=== PATIENT | male | born 1945 | race Caucasian/White ===

== ENCOUNTER 2018-09-13 08:22 | Inpatient (IN) | payer MEDICARE, BC ==
[~2018-09-13 08:22] MED LIST: Buffered Lidocaine 1% SYRIN* 1 ML/SYRINGE INTRADERM ONE; Dexamethasone TAB* 4 MG PO ONE; DiMENhydriNATE IV* 50 MG/ML VIAL IV PUSH PRN; Famotidine IV* 10 MG/ML 2 ML (20 mg) IV ONE; Lactated Ringers 1000 ML Bag* 1,000 ML IV SCH; Morphine 4 MG/ML VIAL (1 ml) 4 MG/ML VIAL IV PRN; Naloxone* 0.4 MG/ML 1 ML VIAL IV PRN; Ondansetron TAB* 4 MG PO ONE; PROCHLORPERAZINE INJ 5 MG/ML 2 ML VIAL IV PRN; fentaNYL* 50 MCG/ML 2 ML VIAL (100 MCG VIAL) IV PRN; oxyCODONE/Acetamin 5/325 MG* TAB PO PRN
[2018-09-13] MEDS ORDERED: Ondansetron ODT TAB* 4 MG ONE (09:39)
[2018-09-13] MEDS ORDERED: ceFAZolin 1 GM ADVAN(*) 1 GM ADDV.VIAL IVPB ONE (09:39)
[2018-09-13] MEDS ORDERED: Dexamethasone TAB* 4 MG ONE (09:39)
[2018-09-13] MEDS ORDERED: ceFAZolin 2 GM in NS PREMIX(*) 2 GM/100 ML BAG IVPB ONE (09:40)
[2018-09-13] MEDS ORDERED: Famotidine IV* 10 MG/ML 2 ML (20 mg) ONE (09:40)
[2018-09-13] MEDS ORDERED: KETAMINE HCL* 50 MG/ML 10 ML VIAL ONE (09:53)
[2018-09-13] MEDS ORDERED: Midazolam* 1 MG/ML 5 ML VIAL (5 MG) ONE (09:53)
[2018-09-13] MEDS ORDERED: fentaNYL* 50 MCG/ML 2 ML VIAL (100 MCG VIAL) ONE (09:53)
[2018-09-13] MEDS ORDERED: Bupivacaine 0.5%* 50 ML VIAL ONE (10:25)
[2018-09-13] MEDS ORDERED: EPHEDrine (Pressors)* 50 MG/ML VIAL ONE (12:07)
[2018-09-13] MEDS ORDERED: Phenylephrine 10 MG/ML VIAL* 1 ML VIAL ONE (12:07)
[2018-09-13] MEDS ORDERED: Lidocaine 2% PF * 5 ML VIAL ONE (12:07)
[2018-09-13] MEDS ORDERED: Propofol* 500 MG/50 ML BTL ONE (12:07)
[2018-09-13] MEDS ORDERED: Propofol* 10 MG/ML 20 ML BTL ONE (12:10)
[2018-09-13] MEDS ORDERED: diPHENhydraMINE IV* 50 MG/ML 1 ml VIAL (BENADRYL) IV PRN (12:23)
[2018-09-13] MEDS ORDERED: Ondansetron INJ* 2 MG/ML VIAL IV PRN (12:23)
[2018-09-13] MEDS ORDERED: Morphine 4 MG/ML VIAL (1 ml) 4 MG/ML VIAL IV PRN (12:23)
[2018-09-13] MEDS ORDERED: Magnesium Hydroxide LIQ* 30 ML UDC PO PRN (12:23)
[2018-09-13] MEDS ORDERED: oxyCODONE TAB* 5 MG TAB PO PRN ×2 (12:23→12:31)
[2018-09-13] MEDS ORDERED: Temazepam CAP* 15 MG PO PRN (12:23)
[2018-09-13] MEDS ORDERED: Lactated Ringers 1000 ML Bag* 1,000 ML IV SCH (13:00)
[2018-09-13] MEDS ORDERED: oxyCODONE/Acetamin 5/325 MG* TAB ONE (13:33)
[2018-09-13] MEDS ORDERED: Vancomycin per Pharmacy* NOTE FOLLOW UP PRN (15:00)
--- NOTE | 2018-09-13 15:26 | OP ---
Operative Report - Blank - Operative Report Date of Operation: 09/13/18 Note: PATIENT: Deonte Gurrola DATE OF : 1945 DATE OF SURGERY: 09/13/2018 SURGEON: Kapil Rueda MD [employer] SK[employer]: FIDELINA Dumont, whos assistance was necessary for positioning, retraction, help with instrumentation, and closure. ANESTHESIOLOGIST: Dr. Schroeder PREOPERATIVE DIAGNOSIS: Right forefoot deep infection with abscess and osteomyelitis. Right gastrocnemius contracture. POSTOPERATIVE DIAGNOSIS: Right forefoot deep infection with abscess and osteomyelitis. Right gastrocnemius contracture. OPERATION: 1. Right gastrocnemius recession (Fabrizio procedure) 2. Right 2nd toe amputation at the level of the MTP joint 3. Right 2nd metatarsal head excision 4. Right foot irrigation and debridement in multiple deep spaces ANESTHESIA: MAC IMPLANTS: none TOURNIQUET TIME: Less than 1 hour with a well-padded thigh tourniquet at 250mmHg. SPECIMENS: Toe to pathology. Culture swabs x2 to micro. ESTIMATED BLOOD LOSS: minimal COMPLICATIONS: none STATUS: Stable from the operating room to the recovery room. INDICATIONS FOR PROCEDURE: Deonte has had persistent and recurrent forefoot infections. Both operative and non operative treatment alternatives were reviewed. Further, the nature and risks of surgery were reviewed in careful detail. Our discussions regarding the risks of surgery included, but were not limited to, wound infection, wound problems, nerve injury, neuroma, RSD, persistent symptoms, blood clot, persistent or worsening infection, failure of the surgery, need for further amputation, and even the remote chance of catastrophic complication, including loss of limb. DESCRIPTION OF PROCEDURE: The patient was seen in the preoperative holding unit and informed written consent was obtained. The appropriate extremity was marked. The patient was then brought to the operating room and carefully positioned on the operating room table. Anesthesia was induced. All bony prominences were padded with great care. A chlorhexidine based pre-scrub was performed followed by a chloraprep prep and drape in standard sterile fashion. A surgical safety pause was then conducted in which we confirmed the appropriate patient, extremity, planned procedure, availability of equipment, indication and administration of antibiotics, and DVT prophylaxis in the form of a compression boot on the non- surgical extremity. I began with an esmarch exsanguination and inflated the tourniquet. Care was taken not to compress the infected forefoot. I then made an approximately 3-cm incision at the posteromedial calf. I carried the dissection through the soft tissue and divided the crural fascia longitudinally. I then exposed the fascia of the gastrocnemius muscle. Great care was taken to protect the sural nerve throughout this procedure. I cleared all adhesions from the posterior aspect of the gastrocnemius fascia and then transected this in its entirety from medially to laterally. I then identified the plantaris tendon, which was also tight medially. This was transected. These procedures had the effect of improving the ankle dorsiflexion to approximately 10 degrees. I then again confirmed that the sural nerve was in continuity. We irrigated copiously. We then used #3-0 Monocryl for the subdermal layer and patricia for the skin. I then made an incision to remove the distal aspect of the toe. I maintained as much healthy soft-tissue length as was possible. The phalanges were dissected out and the toe was amputated at the level of the MTP joint. The toe was then sent to pathology. I then utilized his prior longitudinal dorsal incision over the second metatarsal to expose the forefoot. Dissection was taken down to the layer of the second metatarsal. There was mary ann pus in the forefoot. A thorough debridement of nonviable and infected tissue was performed at the layer of the skin, subcutaneous tissue, fascial tissue, periosteum, and intermetatarsal spaces between the first and second and second and third metatarsals. This tissue was debrided sharply with a 15 blade scalpel. After a thorough debridement, 5 L of sterile normal saline was used to irrigate out the wound, which measured 7 cm in length and 2 cm in width and 2 cm in depth. The remaining tissue appeared healthy and viable. The distal aspect of the second metatarsal was soft and appeared osteomyelitic. Therefore, I decided to move forward with an excision of the second metatarsal head. A small oscillating saw blade was then used to remove approximately the distal third of the second metatarsal. I then performed one last thorough irrigation of the wound. We closed in a layered fashion with 0 PDS, 3-0 monocryl and then 3-0 nylon and then placed a splint with the ankle in a neutral position. The patient was then awakened from anesthesia and transferred to the recovery room in stable condition. There were no complications. All needle and sponge counts were correct at the end of the case. ATTESTATION: I attest I was present and scrubbed and performed the critical portions of the procedure myself. POSTOPERATIVE PLAN: The patient will be NWB. Antibiotic treatment will be guided by the infectious disease service.
[2018-09-13] MEDS ORDERED: Vancomycin(*) 1,500 MG in NS 0.9% 250 ML* 250 ML IVPB ONE (16:30)
[2018-09-13] MEDS ORDERED: ZOSYN 3.375 GM x ONE DOSE over 30 miuntes IVPB ×2 (16:30)
[2018-09-13] MEDS: Acetaminophen TAB* 325 MG PO SCH (17:06)
[2018-09-13] MEDS: Fludrocortisone Acetate TAB* 0.1 MG PO SCH (17:15)
[2018-09-13] MEDS: Hydrocortisone INJ* 100 MG VIAL IV SCH (17:15)
--- NOTE | 2018-09-13 17:17 | CONS ---
CC: Dr. Emery in [place], [place] * CONSULTATION REPORT: DATE OF CONSULT: 09/13/18 PRIMARY CARE PROVIDER: Dr. Emery in [place], [place]. REQUESTING PHYSICIAN IN CONSULT: Dr. Rueda. ATTENDING PHYSICIAN: Dr. Anna Marie Lopez (dictated by Franco Curry, JONAS). REASON FOR CONSULT: Co-medical management of [place]'s disease and hypertension. HISTORY OF PRESENT ILLNESS/HOSPITAL COURSE: I will refer you to Dr. Rueda's H and P dictated on 09/10/18 for complete details, but in short, Mr. Gurrola is a 72- year-old male with a past medical history significant for hypertension, Matt's disease and peripheral neuropathy, who presented to [facility] today for a right foot second toe amputation, second metatarsal head resection and irrigation and debridement of soft tissue abscess. Given the patient's medical history, we were asked to consult while this patient is hospitalized. PAST MEDICAL HISTORY: 1. Hypertension. 2. Matt's disease. 3. Peripheral neuropathy. PAST SURGICAL HISTORY: 1. Right foot surgery x2. 2. Kidney stone surgery. HOME MEDICATIONS: 1. Hydrocortisone 20 mg by mouth in the morning and 10 mg by mouth in the evening (morning dose taken today). 2. Fludrocortisone acetate 0.1 mg 1 tab in the morning every other day, last dose yesterday. 3. Hydrochlorothiazide 12.5 mg p.o. daily (last dose today). 4. Lisinopril 20 mg 1 tab by mouth daily (last dose today). 5. Bactrim DS 800/160 mg 1 by mouth twice a day (last dose today). ALLERGIES: No known drug allergies. FAMILY HISTORY: The patient reports mother of cancer. The patient reports father in a MVA, but had history of diabetes, multiple MIs and hypertension. 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 The patient is a former smoker, he quit in 1969. The patient denies alcohol use. The patient denies drug use. The patient lives with his . Prior to today, the patient was independent in his ADLs. The patient lives in a 2-mande[address] building. REVIEW OF SYSTEMS: Constitutional: No fevers, no weight loss, no anorexia. Cardiac: No chest pain, no palpitations, no shortness of breath. Respiratory: No cough, no hemoptysis, no shortness of breath. Abdomen: No nausea or vomiting, no diarrhea, no abdominal pain, no constipation. : No dysuria, no hematuria. Musculoskeletal: The patient currently denies pain. Skin: The patient denies rashes or lesions. Psych: The patient denies anxiety or depression. PHYSICAL EXAM: General: Mr. Gurrola is sitting on the stretcher in the PACU. He appears in no acute distress. He appears stated age. Vital Signs: Temp 98.6, HR 85, O2 saturation 93% on room air, RR 17, BP 116/64. HEENT: EOMs intact. PERRLA. Oral mucosa is moist without lesions. Posterior pharynx is clear. Neck: Supple. No lymphadenopathy. Respiratory: Lungs are clear to auscultation. Good aeration. No wheezes, rubs, or rhonchi. Cardiac: S1, S2 present. No murmurs, rubs, or gallops. Regular rate and rhythm. Abdomen: Abdomen is soft, nontender. Bowel sounds x4. Extremities: Right lower extremity has soft cast and Torito wrap from foot to directly below knee. Left lower extremity is free from edema. Pedal pulses are present on the left. Popiteal pulse present on right. Exposed toes on right are pink and blanchable. Sensation intact to left. Sensation diminished to right currently. Neuro: The patient is awake, alert, and oriented x4. Motor strength is 5/5 in upper and lower extremities. Skin: Grossly intact. Dressing to right lower extremity is clean, dry, and intact. DIAGNOSTIC STUDIES/LAB DATA: CBC obtained 08/29/18, WBC 15.5, hemoglobin 14.8, hematocrit 43, platelets 398. CRP 142.92. ASSESSMENT AND PLAN: Mr. Gurrola is a 72-year-old male with a past medical history significant for hypertension, Matt's disease, peripheral neuropathy, who presented to [facility] today for a right foot surgery. The patient will be admitted to short-stay surgical. 1. Right foot second toe amputation, second metatarsal head resection, irrigation and debridement of soft tissue abscess. The management of this will be deferred to the ortho team. 2. Osteomyelitis: There was concern for osteomyelitis, therefore, Dr. Hinton has been contacted to consult. The patient has also been started on Zosyn and vancomycin. We will continue these until the patient is seen by Dr. Hinton. The patient to be monitored routinely for signs and symptoms of worsening infection. 2. Hypertension: The patient has a history of hypertension and is on lisinopril and hydrochlorothiazide. In the PACU, the patient was noted to be hypotensive with the lowest systolic being 89. The patient had epi infusing during my assessment. I suspect this low blood pressure is due to surgery, but also patient's Matt's disease. I have ordered hydrocortisone 50 mg IV now and t.i.d. while the patient is admitted. I believe this will help with his blood pressure. I have also held the patient's blood pressure medications of lisinopril and HCTZ. The patient to be monitored routinely. 3. [place]'s disease: As mentioned above, the patient has been ordered hydrocortisone 50 mg IV q.8 hours given his recent surgery and his history of [place]'s disease. I have also ordered the patient to receive his fludrocortisone p.o. now. The patient should receive the hydrocortisone 50 mg IV q.8 hours while admitted and then we can titrate back to the patient's normal dosing at home. 4. The patient has a history of peripheral neuropathy: The patient can follow up with his primary care regarding this. 5. FEN: The patient has been ordered diet by the ortho team. 6. Code status: The patient is a full code. 7. DVT prophylaxis: DVT prophylaxis has been ordered by the ortho team in the form of Lovenox. TIME SPENT: Approximately 45 minutes was spent on this consultation, greater than half the time was spent with the patient and family, obtaining my history and performing physical exam and reviewing my plan of care. This case has been reviewed with my attending, Dr. Lopez, who is in agreement with my plan of care. Thank you very much for allowing us to participate in the care of this patient. We will follow along with you. Reviewed by FRANCO CURRY NP 09/21/18 @ [id number]/CPS #: [id number]
[2018-09-13 17:49] LABS: EGFR African American 38.5 (>60); EGFR Non-African American 31.8 (>60)
[2018-09-13] MEDS ORDERED: HYDROCORTISONE 10 MG PO SCH (18:00)
[2018-09-13] MEDS: Piperacillin/Tazobac ADVAN(*) 3.375 GM in NS 0.9% 100 ML* 100 ML IVPB SCH (20:38)
[2018-09-14] MEDS: Acetaminophen TAB* 325 MG PO SCH ×3 (00:50→16:40)
[2018-09-14] MEDS: Hydrocortisone INJ* 100 MG VIAL IV SCH (00:50)
[2018-09-14] MEDS: Piperacillin/Tazobac ADVAN(*) 3.375 GM in NS 0.9% 100 ML* 100 ML IVPB SCH (04:48)
[2018-09-14 05:27] LABS: Hematocrit 43 % (36-46); Hemoglobin 14.7 g/dL (14.0-18.0)
[2018-09-14 05:56] LABS: Calcium 9.3 mg/dL (8.6-10.3)
[2018-09-14 06:01] LABS: BUN/Creatinine Ratio 18.7 (8-20); EGFR African American 41.5 (>60); EGFR Non-African American 34.3 (>60)
[2018-09-14 06:04] LABS: Potassium 6.1 mmol/L (3.5-5.0)
[2018-09-14 06:29] LABS: Mean Platelet Volume 7.2 fL (7.4-10.4); Platelet Count 426 10^3/uL (150-450)
[2018-09-14] MEDS ORDERED: Vancomycin(*) 1,000 MG in NS 0.9% 250 ML* 250 ML IVPB SCH (06:30)
[2018-09-14] MEDS ORDERED: Calcium Gluconate INJ* 1 GM in NS 0.9% 50 ML* 50 ML IVPB ONE (07:01)
[2018-09-14] MEDS ORDERED: Patiromer POWDER* 8.4 GM PAK PO ONE (07:02)
--- NOTE | 2018-09-14 07:06 | PN ---
Hospitalist Progress Note Date of Service: 09/14/18 HOSPITALIST ADDENDUM Called by Marty Whitfield RN about patient's panic lab results: Laboratory Tests 09/14/18 05:10 Sodium 126 L Potassium 6.1 H* Chloride 103 Carbon Dioxide 14 L* Anion Gap 9 BUN 36 H Creatinine 1.93 H Glucose 109 H Calcium 9.3 No symptoms reported. Mr Gurrola is a 72yo M with PMH of [place]'s disease, HTN, PNP, admitted for elective right second toe/metatarsal head amputation and debridment of soft tissue abscess. No prior admissions to our system to compare labs. He was on Bactrim and Lisinopril as outpatient. A/P: Hyperkalemia / renal failure (?Acute on chronic) with metabolic acidosis - Check EKG. - Give Calcium gluconate and Patiromer. - Signed out to Dr Cordova.
[2018-09-14] MEDS ORDERED: Hydrocortisone INJ* 100 MG VIAL IV SCH (07:30)
[2018-09-14] MEDS ORDERED: NS 0.9% 1000 ML** 1,000 ML IV SCH (07:30)
[2018-09-14] MEDS: Vitamin THERAPEUTIC TAB PO SCH (08:01)
[2018-09-14] MEDS: Enoxaparin(*) 30 MG/0.3 ML SYR SUBCUT SCH (08:01)
[2018-09-14] MEDS ORDERED: [UNRECOGNIZED DRUG - OTHER] PO SCH (09:00)
[2018-09-14] MEDS ORDERED: Lisinopril TAB* 10 MG PO SCH (09:00)
[2018-09-14] MEDS ORDERED: NON FORMULARY MED* (Hydrochlorothiazide [Hydrochlorothiazide] 12.5 MG) PO SCH (09:00)
[2018-09-14] MEDS ORDERED: HYDROCORTISONE 20 MG PO SCH (09:00)
[2018-09-14 09:17] LABS: BUN/Creatinine Ratio 18.3 (8-20); Calcium 9.3 mg/dL (8.6-10.3); EGFR African American 43.3 (>60); EGFR Non-African American 35.8 (>60)
[2018-09-14 09:18] LABS: Potassium 5.3 mmol/L (3.5-5.0)
--- NOTE | 2018-09-14 13:02 | PN ---
Progress Note - Progress Note Date of Service: 09/14/18 SOAP: Subjective: []Patient is seen at bedside, family members present. Patient denies right foot pain.. Denies SOB, CP, palpitations, nausea, or dizziness. Wondering about definitive plan for IV antibiotics. Objective: [] Vital Signs Temp 96.1 F 09/14/18 11:42 Pulse 64 09/14/18 11:42 Resp 16 09/14/18 11:42 BP 127/66 09/14/18 11:42 Pulse Ox 97 09/14/18 11:42 Intake & Output 09/13/18 09/14/18 09/14/18 18:59 06:59 18:59 Intake Total 2650 952 720 Output Total 900 1100 800 Balance 1750 -148 -80 Weight 271 lb 14.4 oz Intake: IV Fluids 2300 330 CEFAZOLIN 3GM IV 100 IVF& IVPB 330 LR 2200 IVPB 622 IVF& IVPB 622 Oral 350 0 720 Output: Urine 900 1100 800 Other: # Bowel Movements 0 Laboratory Results - last 24 hr 09/13/18 09/14/18 09/14/18 17:17 05:10 05:10 Hgb 14.7 Hct 43 Plt Count MPV Not Reportable Sodium 126 L Potassium 6.1 H* Chloride 103 Carbon Dioxide 14 L* Anion Gap 9 BUN 34 H 36 H Creatinine 2.06 H 1.93 H Est GFR ( Amer) 38.5 41.5 Est GFR (Non-Af Amer) 31.8 34.3 BUN/Creatinine Ratio 18.7 Glucose 109 H Calcium 9.3 09/14/18 09/14/18 05:59 08:55 Hgb Hct Plt Count 426 MPV 7.2 L Sodium 129 L Potassium 5.3 H Chloride 101 Carbon Dioxide 18 L Anion Gap 10 BUN 34 H Creatinine 1.86 H Est GFR ( Amer) 43.3 Est GFR (Non-Af Amer) 35.8 BUN/Creatinine Ratio 18.3 Glucose 126 H Calcium 9.3 Labs are improving from overnight with medical management Right foot splint/ dressing dry and intact Assessment: []s/p Right gastrocnemius recession (Fabrizio procedure) 2. Right 2nd toe amputation at the level of the MTP joint 3. Right 2nd metatarsal head excision 4. Right foot irrigation and debridement in multiple deep spaces Plan: []NWB RLE Awaiting ID consult and PIC line [facility] medicine consult/ management of hyperkalemia/ renal failure
--- NOTE | 2018-09-14 13:49 | CONSULT ---
Consult Consult: [facility] Inpatient Consult Note Date of Consult: 09/14/18 Reason for Consult: adrenal insufficiency Reason for Admission: non-healing R foot osteomyelitis ASSESSMENT: 72 yo M with history of adrenal insufficiency since 2009, now admitted for R foot partial amputation for osteomyelitis. The etiology of his adrenal disorder remains uncertain; there is no history of autoimmune disease, surgery, infection or trauma. He has been maintained on high-dose hydrocortisone and intermittent fludrocortisone for several years and has developed hypertension since then, which has been treated with thiazide and DRISS inhibitor. Stress dose steroids during the perioperative period are essential, as below. He has scheduled follow-up with endocrine in November 2018, at which time he was encouraged to discuss optimal prescribing of hydrocortisone/ fludrocortisone. PLAN: - D/C IV hydrocortisone - start PO hydrocortisone 20mg AM, 10mg PM - start fludrocortisone 0.1mg daily SUBJECTIVE: History of Present Illness: 72 yo M with history of CKD, HTN, [place]'s Disease , now admitted for R foot partial amputation for non-healing osteomyelitis. He was initially diagnosed with adrenal insufficiency after presenting to ED in [place] with acute hypotension and septic shock. He was treated with steroids and recovered, but has been maintained on HC 20mg/10mg for many years, with fludrocortisone every other day. He has not experienced hypotension or orthostasis in the years since. Yesterday, he underwent R foot partial amputation and further debridement and several failed surgeries at his home hospital in [place], [place]. Past Medical History: 1. Hypertension. 2. Matt's disease. 3. Peripheral neuropathy. 4. Right foot surgery x2. 5. Kidney stone surgery. Medications Prior to Admission: Fluidrocortisone 0.1 mg PO EVERY OTHER DAY 09/12/18 [History Confirmed 09/13/18] Hydrocortisone TAB* [Cortef TAB*] 10 mg PO QPM 09/12/18 [History Confirmed 09/13] Hydrocortisone TAB* [Cortef TAB*] 20 mg PO QAM 09/12/18 [History Confirmed 09/12] Lisinopril TAB* [Prinivil TAB*] 20 mg PO QAM 09/12/18 [History Confirmed ] Sulfamethox/Trimethoprim DS* [Bactrim DS 800/160 TAB*] 1 tab PO QAM 09/12/18 [ History Confirmed 09/12/18] hydroCHLOROthiazide [Hydrochlorothiazide] 12.5 mg PO QAM 09/12/18 [History Confirmed 09/12/18] Inpatient Medications: Acetaminophen (Tylenol Tab*) 975 mg PO Q8H [facility] Last Admin: 09/14/18 08:01 Dose: 975 mg Diphenhydramine HCl (Benadryl Iv*) 25 mg IV Q6H PRN PRN Reason: itching Enoxaparin Sodium (Lovenox(*)) 30 mg SUBCUT Q24H [facility] Last Admin: 09/14/18 08:01 Dose: 30 mg Fludrocortisone Acetate (Florinef Tab*) 0.1 mg PO EVERY OTHER DAY [facility] Last Admin: 09/13/18 17:15 Dose: 0.1 mg Hydrocortisone Sodium Succinate (Solu-Cortef*) 25 mg IV Q8H [facility] Last Admin: 09/14/18 07:59 Dose: 25 mg Sodium Chloride (Ns 0.9% 1000 Ml) 1,000 mls @ 100 mls/hr IV PER RATE [facility] Last Admin: 09/14/18 07:58 Dose: 100 mls/hr Vancomycin HCl 1,000 mg/ (Sodium Chloride) 250 mls @ 166.667 mls/hr IVPB 1000, 2200 [facility] Magnesium Hydroxide (Milk Of Magnsheela Liq*) 30 ml PO Q6H PRN PRN Reason: constipation Morphine Sulfate (Morphine 4 Mg/Ml Vial (1 Ml)) 2 mg IV Q2H PRN PRN Reason: PAIN Multivitamins (Theragran Tab*) 1 tab PO DAILY [facility] Last Admin: 09/14/18 08:01 Dose: 1 tab Ondansetron HCl (Zofran Inj*) 4 mg IV Q6H PRN PRN Reason: nausea Oxycodone HCl (Roxycodone Tab*) 10 mg PO Q4H PRN PRN Reason: PAIN - SEVERE Oxycodone HCl (Roxycodone Tab*) 5 mg PO Q4H PRN PRN Reason: PAIN - MODERATE Pharmacy Consult (Vancomycin Per Pharmacy*) 1 note FOLLOW UP . 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 The patient is a former smoker, he quit in 1969. The patient denies alcohol use. The patient denies drug use. The patient lives with his . Family History: Mother and 2 siblings of cancer. Review of Systems: Constitutional: No fevers, no weight loss, no anorexia. Cardiac: No chest pain, no palpitations, no shortness of breath. Respiratory: No cough, no hemoptysis, no shortness of breath. Abdomen: No nausea or vomiting, no diarrhea, no abdominal pain, no constipation. : No dysuria, no hematuria. Musculoskeletal: The patient currently denies pain. Skin: The patient denies rashes or lesions. Psych: The patient denies anxiety or depression. OBJECTIVE: Temp Pulse Resp BP Pulse Ox 96.1 F 64 16 127/66 97 09/14/18 11:42 09/14/18 11:42 09/14/18 11:42 09/14/18 11:42 09/14/18 11:42 General: alert, pleasant, oriented, no distress ENT: neck supple, no thyromegaly, no bruit is heard Chest: CTAB, no wheezing or crackles CV: RRR, no murmur Abdomen: soft, non-tender Extremities: no edema, distal pulses intact Skin: warm, dry, no rash Neuro: grossly intact motor/sensory in extremities Psych: restricted affect, pleasant Labs: Hgb 14.7 g/dL (14.0-18.0) 09/14/18 05:10 Hct 43 % (36-46) 09/14/18 05:10 Plt Count 426 10^3/uL (150-450) 09/14/18 05:59 MPV 7.2 fL (7.4-10.4) L 09/14/18 05:59 Sodium 129 mmol/L (135-145) L 09/14/18 08:55 Potassium 5.3 mmol/L (3.5-5.0) H 09/14/18 08:55 Chloride 101 mmol/L (101-111) 09/14/18 08:55 Carbon Dioxide 18 mmol/L (22-32) L 09/14/18 08:55 Anion Gap 10 mmol/L (2-11) 09/14/18 08:55 BUN 34 mg/dL (6-24) H 09/14/18 08:55 Creatinine 1.86 mg/dL (0.67-1.17) H 09/14/18 08:55 Est GFR ( Amer) 43.3 (>60) 09/14/18 08:55 Est GFR (Non-Af Amer) 35.8 (>60) 09/14/18 08:55 BUN/Creatinine Ratio 18.3 (8-20) 09/14/18 08:55 Glucose 126 mg/dL (70-100) H 09/14/18 08:55 Calcium 9.3 mg/dL (8.6-10.3) 09/14/18 08:55
[2018-09-14] MEDS ORDERED: Senna TAB PO PRN (15:26)
--- NOTE | 2018-09-14 15:44 | CONSULT ---
Subjective Date of Service: 09/14/18 Interval History: Pt is s/p R foot second toe amputation and metatarsal head resection with debridement and gastrocnemius recession on 09/13. He reports good pain control. Endo consult appreciated and recommending to discontinue stress-dose steroids through IV. ID consulted and recommending IV vancomycin for 1 month, with f/u of cultures from OR which may change management lead. Review of Systems - Measurements Intake and Output: Intake and Output Last 24 Hours 09/12/18 09/13/18 09/14/18 09/15/18 06:59 06:59 06:59 06:59 Intake Total 3602 2280 Output Total 2000 1300 Balance 1602 980 Weight 265 lb 271 lb 14.4 oz Intake: IV Fluids 2630 15 CEFAZOLIN 3GM IV 100 IVF& IVPB 330 LR 2200 NS 15 IVPB 622 465 ABX - ZOSYN 110 Calcium Gluconate 65 IVF& IVPB 622 Vanco 290 Oral 350 1800 Output: Urine 2000 1300 Other: # Bowel Movements 0 Objective Active Medications: Acetaminophen (Tylenol Tab*) 975 mg PO Q8H [facility] Last Admin: 09/14/18 08:01 Dose: 975 mg Diphenhydramine HCl (Benadryl Iv*) 25 mg IV Q6H PRN PRN Reason: itching Enoxaparin Sodium (Lovenox(*)) 30 mg SUBCUT Q24H [facility] Last Admin: 09/14/18 08:01 Dose: 30 mg Fludrocortisone Acetate (Florinef Tab*) 0.1 mg PO EVERY OTHER DAY [facility] Last Admin: 09/13/18 17:15 Dose: 0.1 mg Hydrocortisone (Cortef Tab*) 20 mg PO DAILY [facility] Hydrocortisone (Cortef Tab*) 10 mg PO QPM [facility] Vancomycin HCl 1,000 mg/ (Sodium Chloride) 250 mls @ 166.667 mls/hr IVPB 1000, 2200 [facility] Magnesium Hydroxide (Milk Of Magnesia Liq*) 30 ml PO Q6H PRN PRN Reason: constipation Multivitamins (Theragran Tab*) 1 tab PO DAILY [facility] Last Admin: 09/14/18 08:01 Dose: 1 tab Ondansetron HCl (Zofran Inj*) 4 mg IV Q6H PRN PRN Reason: nausea Oxycodone HCl (Roxycodone Tab*) 10 mg PO Q4H PRN PRN Reason: PAIN - SEVERE Oxycodone HCl (Roxycodone Tab*) 5 mg PO Q4H PRN PRN Reason: PAIN - MODERATE Pharmacy Consult (Vancomycin Per Pharmacy*) 1 note FOLLOW UP . PRN PRN Reason: PER PROTOCOL Pharmacy Profile Note (Vancomycin Trough Check) 1 note FOLLOW UP 0600 ONE Stop: 09/15/18 10:01 Temazepam (Restoril Cap*) 15 mg PO BEDTIME PRN PRN Reason: INSOMNIA Vital Signs - 8 hr 09/14/18 09/14/18 09/14/18 07:25 08:00 11:42 Temperature 96.2 F 96.1 F Pulse Rate 69 64 Respiratory 16 16 16 Rate Blood Pressure 123/53 127/66 (mmHg) O2 Sat by Pulse 98 98 97 Oximetry Oxygen Devices in Use Now: None Result Diagrams: 09/14/18 05:59 09/14/18 08:55 Microbiology and Other Data: Microbiology 09/13/18 11:30 Anaerobic Culture - Preliminary Wound - Other No Growth Day 1 09/13/18 11:30 Gram Stain - Final Foot Right Wound Culture - Preliminary No Growth Day 1 09/13/18 11:30 Anaerobic Culture - Preliminary Wound No Growth Day 1 09/13/18 11:30 Skin and Soft Tissue MRSA/MSSA (PCR - Final Wound Mrsa Negative S.aureus Negative Gram Stain - Final Wound Culture - Preliminary No Growth Day 1 Assessment/Plan - Billing 72M with adrenal insufficiency, HTN, and 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 Medicine consulted for management of HTN and CKD. Etiology of adrenal insufficiency is unknown, but pt reports it started when he had sepsis in 2009 and was in an ICU for weeks in a "coma". # Hyperkalemia. K 6.1 on morning after surgery with no prior labs found. Was taking Bactrim and lisinopril prior to surgery and is noted to also have impaired renal function of unknown etiology (and unknown baseline function). - s/p Patiromer and calcium gluc - cont to f/u BMP - caution with restart of lisinopril, if needed - Bactrim contraindicated #Normal anion gap metabolic acidosis. Could be RTA (Bactrim known to cause this) . - f/u BMPs and urine pH/electrolytes # CKD - unclear baseline, attempting to obtain outside records - renally dose medications - avoid nephrotoxic medications # Adrenal insufficiency: - appreciate Endo input for steroid management - now on hydrocortisone 20mg qAM, 10mg qPM; fludrocortisone 0.1mg daily # HTN - holding home lisinopril and HCTZ Home with PT and infusions after PICC placement.
[2018-09-14 16:16] LABS: BUN/Creatinine Ratio 18.6 (8-20); Calcium 9.7 mg/dL (8.6-10.3); EGFR African American 47.4 (>60); EGFR Non-African American 39.2 (>60); Potassium 4.9 mmol/L (3.5-5.0)
[2018-09-14] MEDS: Hydrocortisone TAB* 10 MG PO SCH (16:40)
[2018-09-14 20:46] LABS: Urine Potassium Concentration 23.4 mmol/L
[2018-09-14] MEDS: Vancomycin(*) 1,000 MG in NS 0.9% 250 ML* 250 ML IVPB SCH (22:24)
[2018-09-15] MEDS: Acetaminophen TAB* 325 MG PO SCH ×3 (00:23→16:25)
[2018-09-15 08:00] LABS: ABS Basophils 0.1 10^3/ul (0-0.2); ABS Eosinophils 0.1 10^3/ul (0-0.6); ABS Lymphocytes 3.1 10^3/ul (1.0-4.8); ABS Monocytes 0.8 10^3/ul (0-0.8); ABS Neutrophils 5.9 10^3/ul (1.5-7.7); ABS Nucleated RBC 0 10^3/ul; Hematocrit 39 % (36-46); Hemoglobin 13.3 g/dL (14.0-18.0); Lymphocyte % 30.9 %; Mean Corpuscular HGB Conc 34 g/dL (31-36); Mean Corpuscular Hemoglobin 31 pg (27-31); Mean Corpuscular Volume 91 fL (80-94); Mean Platelet Volume 7.3 fL (7.4-10.4); Nucleated Red Blood Cells % 0; Platelet Count 434 10^3/uL (150-450); Red Blood Count 4.28 10^6 /uL (4.18-5.48); Red Cell Distribution Width 15 % (10.5-15)
[2018-09-15] MEDS: Vitamin THERAPEUTIC TAB PO SCH (08:09)
[2018-09-15] MEDS: Hydrocortisone TAB* 10 MG PO SCH ×2 (08:09→18:08)
[2018-09-15] MEDS: Fludrocortisone Acetate TAB* 0.1 MG PO SCH (08:09)
[2018-09-15] MEDS: Enoxaparin(*) 30 MG/0.3 ML SYR SUBCUT SCH (08:09)
[2018-09-15 08:15] LABS: BUN/Creatinine Ratio 20.6 (8-20); Calcium 9.5 mg/dL (8.6-10.3); EGFR African American 59.6 (>60); EGFR Non-African American 49.3 (>60); Potassium 4.9 mmol/L (3.5-5.0)
--- NOTE | 2018-09-15 09:42 | PN ---
Progress Note - Progress Note Date of Service: 09/15/18 SOAP: Subjective: resting comfortably in bed with minimal pain Objective: Vital Signs Temp Pulse Resp BP Pulse Ox 97.3 F 58 20 117/61 95 09/15/18 07:30 09/15/18 07:30 09/15/18 07:30 09/15/18 07:30 09/15/18 07:49 Laboratory Last Values WBC 10.0 10^3/uL (3.5-10.8) 09/15/18 07:44 RBC 4.28 10^6 /uL (4.18-5.48) 09/15/18 07:44 Hgb 13.3 g/dL (14.0-18.0) L 09/15/18 07:44 Hct 39 % (36-46) 09/15/18 07:44 MCV 91 fL (80-94) 09/15/18 07:44 MCH 31 pg (27-31) 09/15/18 07:44 MCHC 34 g/dL (31-36) 09/15/18 07:44 RDW 15 % (10.5-15) 09/15/18 07:44 Plt Count 434 10^3/uL (150-450) 09/15/18 07:44 MPV 7.3 fL (7.4-10.4) L 09/15/18 07:44 Neut % (Auto) 59.0 % 09/15/18 07:44 Lymph % (Auto) 30.9 % 09/15/18 07:44 [place] % (Auto) 8.0 % 09/15/18 07:44 Eos % (Auto) 1.0 % 09/15/18 07:44 Baso % (Auto) 1.1 % 09/15/18 07:44 Absolute Neuts (auto) 5.9 10^3/ul (1.5-7.7) 09/15/18 07:44 Absolute Lymphs (auto) 3.1 10^3/ul (1.0-4.8) 09/15/18 07:44 Absolute Monos (auto) 0.8 10^3/ul (0-0.8) 09/15/18 07:44 Absolute Eos (auto) 0.1 10^3/ul (0-0.6) 09/15/18 07:44 Absolute Basos (auto) 0.1 10^3/ul (0-0.2) 09/15/18 07:44 Absolute Nucleated RBC 0 10^3/ul 09/15/18 07:44 Nucleated RBC % 0 09/15/18 07:44 Sodium 134 mmol/L (135-145) L 09/15/18 07:44 Potassium 4.9 mmol/L (3.5-5.0) 09/15/18 07:44 Chloride 105 mmol/L (101-111) 09/15/18 07:44 Carbon Dioxide 20 mmol/L (22-32) L 09/15/18 07:44 Anion Gap 9 mmol/L (2-11) 09/15/18 07:44 BUN 29 mg/dL (6-24) H 09/15/18 07:44 Creatinine 1.41 mg/dL (0.67-1.17) H 09/15/18 07:44 Est GFR ( Amer) 59.6 (>60) 09/15/18 07:44 Est GFR (Non-Af Amer) 49.3 (>60) 09/15/18 07:44 BUN/Creatinine Ratio 20.6 (8-20) H 09/15/18 07:44 Glucose 75 mg/dL (70-100) 09/15/18 07:44 Calcium 9.5 mg/dL (8.6-10.3) 09/15/18 07:44 Magnesium 2.0 mg/dL (1.9-2.7) 09/15/18 07:44 Urine pH 5.0 (5-9) 09/14/18 17:45 Urine Osmolality 360 mOsm/kg (100-1150) 09/14/18 17:45 U Sodium Concentration 75 mmol/L 09/14/18 17:45 Urine Potassium 23.4 mmol/L 09/14/18 17:45 Ur Chloride Concentrat 81 mmol/L 09/14/18 17:45 dressing c/d/i Assessment: s/p right gastroc recession, right 2nd toe amp,right 2nd metatarsal excision, right foot I&d Plan: 1) pt/ot- nwb rle 2) Cont IV abx per ID 3) awaiting PICC line placement 4) hospitalist co-managing
[2018-09-15] MEDS ORDERED: Vancomycin Trough Check NOTE FOLLOW UP ONE (10:00)
[2018-09-15] MEDS: Vancomycin(*) 1,000 MG in NS 0.9% 250 ML* 250 ML IVPB SCH ×2 (10:44→21:56)
--- NOTE | 2018-09-15 19:02 | CONSULT ---
Subjective Interval History: Hyponatremia is improving. Hyperkalemia resolved. Creatinine nearly normal. Bicarb increasing, nearly back to normal. Pt denies symptoms. Patiently waiting for PICC. Review of Systems - Measurements Intake and Output: Intake and Output Last 24 Hours 09/13/18 09/14/18 09/15/18 09/16/18 06:59 06:59 06:59 06:59 Intake Total 3602 4469 360 Output Total 1999 3080 Balance 1602 1389 360 Weight 265 lb 271 lb 14.4 oz Intake: IV Fluids 2630 779 CEFAZOLIN 3GM IV 100 IVF& IVPB 330 LR 2200 NS 779 IVPB 622 750 ABX - ZOSYN 110 Calcium Gluconate 65 IVF& IVPB 622 Vanco 575 Oral 350 2940 360 Output: Urine 1999 3080 Other: # Bowel Movements 0 Objective Active Medications: Acetaminophen (Tylenol Tab*) 975 mg PO Q8H [facility] Last Admin: 09/15/18 16:25 Dose: 975 mg Diphenhydramine HCl (Benadryl Iv*) 25 mg IV Q6H PRN PRN Reason: itching Enoxaparin Sodium (Lovenox(*)) 30 mg SUBCUT Q24H [facility] Last Admin: 09/15/18 08:09 Dose: 30 mg Fludrocortisone Acetate (Florinef Tab*) 0.1 mg PO EVERY OTHER DAY [facility] Last Admin: 09/15/18 08:09 Dose: 0.1 mg Hydrocortisone (Cortef Tab*) 20 mg PO DAILY [facility] Last Admin: 09/15/18 08:09 Dose: 20 mg Hydrocortisone (Cortef Tab*) 10 mg PO QPM [facility] Last Admin: 09/15/18 18:08 Dose: 10 mg Vancomycin HCl 1,000 mg/ (Sodium Chloride) 250 mls @ 166.667 mls/hr IVPB 1000, 2200 [facility] Last Admin: 09/15/18 10:44 Dose: 166.667 mls/hr Magnesium Hydroxide (Milk Of Magnesia Liq*) 30 ml PO Q6H PRN PRN Reason: constipation Multivitamins (Theragran Tab*) 1 tab PO DAILY [facility] Last Admin: 09/15/18 08:09 Dose: 1 tab Ondansetron HCl (Zofran Inj*) 4 mg IV Q6H PRN PRN Reason: nausea Oxycodone HCl (Roxycodone Tab*) 10 mg PO Q4H PRN PRN Reason: PAIN - SEVERE Oxycodone HCl (Roxycodone Tab*) 5 mg PO Q4H PRN PRN Reason: PAIN - MODERATE Pharmacy Consult (Vancomycin Per Pharmacy*) 1 note FOLLOW UP . PRN PRN Reason: PER PROTOCOL Senna (Senokot Tab*) 2 tab PO BEDTIME PRN PRN Reason: if no BM during day Temazepam (Restoril Cap*) 15 mg PO BEDTIME PRN PRN Reason: INSOMNIA Vital Signs - 8 hr 09/15/18 09/15/18 11:15 15:44 Temperature 98.2 F 98.1 F Pulse Rate 58 72 Respiratory 18 20 Rate Blood Pressure 126/49 133/78 (mmHg) O2 Sat by Pulse 99 98 Oximetry Oxygen Devices in Use Now: None Result Diagrams: 09/15/18 07:44 09/15/18 07:44 Microbiology and Other Data: Microbiology 09/13/18 11:30 Anaerobic Culture - Preliminary Wound - Other No Growth Day 1 09/13/18 11:30 Gram Stain - Final Foot Right Wound Culture - Preliminary No Growth Day 1 09/13/18 11:30 Anaerobic Culture - Preliminary Wound No Growth Day 1 09/13/18 11:30 Skin and Soft Tissue MRSA/MSSA (PCR - Final Wound Mrsa Negative S.aureus Negative Gram Stain - Final Wound Culture - Preliminary No Growth Day 1 Assessment/Plan - Billing 72M with adrenal insufficiency, HTN, and 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 Medicine consulted for management of HTN and CKD. Etiology of adrenal insufficiency is unknown, but pt reports it started when he had sepsis in 2009 and was in an ICU for weeks in a "coma". # Hyperkalemia. RESOLVED. K 6.1 on morning after surgery with no prior labs found. Was taking Bactrim and lisinopril prior to surgery and is noted to also have impaired renal function of unknown etiology (and unknown baseline function) . - s/p Patiromer 09/14 - cont to f/u BMP - caution with restart of lisinopril, if needed - Bactrim contraindicated #Normal anion gap metabolic acidosis. Could be RTA (Bactrim known to cause this) . Resolving. Urine anion gap 17 with pH of 5.0. - f/u BMPs # CKD - unclear baseline, attempting to obtain outside records - renally dose medications - avoid nephrotoxic medications # Adrenal insufficiency: - appreciate Endo input for steroid management - now on hydrocortisone 20mg qAM, 10mg qPM; fludrocortisone 0.1mg daily # HTN - holding home lisinopril and HCTZ Home with PT and infusions after PICC placement.
[2018-09-16] MEDS: Acetaminophen TAB* 325 MG PO SCH ×3 (01:36→16:23)
[2018-09-16 06:03] LABS: ABS Basophils 0.1 10^3/ul (0-0.2); ABS Eosinophils 0.2 10^3/ul (0-0.6); ABS Lymphocytes 3.6 10^3/ul (1.0-4.8); ABS Monocytes 0.7 10^3/ul (0-0.8); ABS Neutrophils 5.2 10^3/ul (1.5-7.7); ABS Nucleated RBC 0 10^3/ul; Eosinophil % 1.8 %; Hematocrit 37 % (36-46); Hemoglobin 12.8 g/dL (14.0-18.0); Lymphocyte % 36.5 %; Mean Corpuscular HGB Conc 34 g/dL (31-36); Mean Corpuscular Hemoglobin 31 pg (27-31); Mean Corpuscular Volume 91 fL (80-94); Mean Platelet Volume 7.1 fL (7.4-10.4); Nucleated Red Blood Cells % 0; Platelet Count 401 10^3/uL (150-450); Red Cell Distribution Width 15 % (10.5-15); White Blood Count 9.8 10^3/uL (3.5-10.8)
[2018-09-16 06:18] LABS: BUN/Creatinine Ratio 22.9 (8-20); EGFR African American 64.9 (>60); EGFR Non-African American 53.6 (>60); Magnesium 1.9 mg/dL (1.9-2.7); Potassium 4.5 mmol/L (3.5-5.0)
[2018-09-16] MEDS: Hydrocortisone TAB* 10 MG PO SCH ×2 (08:56→18:19)
[2018-09-16] MEDS: Vitamin THERAPEUTIC TAB PO SCH (08:56)
[2018-09-16] MEDS: Enoxaparin(*) 30 MG/0.3 ML SYR SUBCUT SCH (08:58)
--- NOTE | 2018-09-16 09:48 | PN ---
Progress Note - Progress Note Date of Service: 09/16/18 SOAP: Subjective: resting comfortably, no complaints of pain Objective: Vital Signs Temp Pulse Resp BP Pulse Ox 97.4 F 56 16 130/58 95 09/16/18 08:19 09/16/18 08:19 09/16/18 08:19 09/16/18 08:19 09/16/18 08:19 Laboratory Last Values WBC 9.8 10^3/uL (3.5-10.8) 09/16/18 05:29 RBC 4.10 10^6 /uL (4.18-5.48) L 09/16/18 05:29 Hgb 12.8 g/dL (14.0-18.0) L 09/16/18 05:29 Hct 37 % (36-46) 09/16/18 05:29 MCV 91 fL (80-94) 09/16/18 05:29 MCH 31 pg (27-31) 09/16/18 05:29 MCHC 34 g/dL (31-36) 09/16/18 05:29 RDW 15 % (10.5-15) 09/16/18 05:29 Plt Count 401 10^3/uL (150-450) 09/16/18 05:29 MPV 7.1 fL (7.4-10.4) L 09/16/18 05:29 Neut % (Auto) 53.2 % 09/16/18 05:29 Lymph % (Auto) 36.5 % 09/16/18 05:29 [place] % (Auto) 7.1 % 09/16/18 05:29 Eos % (Auto) 1.8 % 09/16/18 05:29 Baso % (Auto) 1.4 % 09/16/18 05:29 Absolute Neuts (auto) 5.2 10^3/ul (1.5-7.7) 09/16/18 05:29 Absolute Lymphs (auto) 3.6 10^3/ul (1.0-4.8) 09/16/18 05:29 Absolute Monos (auto) 0.7 10^3/ul (0-0.8) 09/16/18 05:29 Absolute Eos (auto) 0.2 10^3/ul (0-0.6) 09/16/18 05:29 Absolute Basos (auto) 0.1 10^3/ul (0-0.2) 09/16/18 05:29 Absolute Nucleated RBC 0 10^3/ul 09/16/18 05:29 Nucleated RBC % 0 09/16/18 05:29 Sodium 134 mmol/L (135-145) L 09/16/18 05:29 Potassium 4.5 mmol/L (3.5-5.0) 09/16/18 05:29 Chloride 105 mmol/L (101-111) 09/16/18 05:29 Carbon Dioxide 20 mmol/L (22-32) L 09/16/18 05:29 Anion Gap 9 mmol/L (2-11) 09/16/18 05:29 BUN 30 mg/dL (6-24) H 09/16/18 05:29 Creatinine 1.31 mg/dL (0.67-1.17) H 09/16/18 05:29 Est GFR ( Amer) 64.9 (>60) 09/16/18 05:29 Est GFR (Non-Af Amer) 53.6 (>60) 09/16/18 05:29 BUN/Creatinine Ratio 22.9 (8-20) H 09/16/18 05:29 Glucose 76 mg/dL (70-100) 09/16/18 05:29 Calcium 9.0 mg/dL (8.6-10.3) 09/16/18 05:29 Magnesium 1.9 mg/dL (1.9-2.7) 09/16/18 05:29 Urine pH 5.0 (5-9) 09/14/18 17:45 Urine Osmolality 360 mOsm/kg (100-1150) 09/14/18 17:45 U Sodium Concentration 75 mmol/L 09/14/18 17:45 Urine Potassium 23.4 mmol/L 09/14/18 17:45 Ur Chloride Concentrat 81 mmol/L 09/14/18 17:45 Vancomycin Trough 14.1 mcg/mL 09/15/18 09:51 dressing c/d/i; splint intact Assessment: s/p right gastroc recession, right 2nd tow amp, right 2nd metatarsal excision, right foot I&D Plan: 1) IV abx 2) NWB RLE 3) awaiting PICC line tomorrow and possible D/C home 4) hospitalist co-managing
[2018-09-16] MEDS: Vancomycin(*) 1,000 MG in NS 0.9% 250 ML* 250 ML IVPB SCH ×2 (10:33→21:09)
--- NOTE | 2018-09-16 16:41 | PN ---
Subjective Date of Service: 09/16/18 Interval History: Pt seen and examined. Meds and labs reviewed. CC: N/A ROS: Denied MUNIZ/dizziness, F/C, N/V, CP, SOB, increased cough, sputum production , abd pain, diarrhea, constipation, dysuria, myalgias, arthralgias, throat pain , and new skin lesions. The rest of the 14 point ROS are unremarkable. PHYSICAL EXAM: GEN APPEARANCE: Awake, not in acute distress HEENT: NC/AT, PERRLA, moist oral mucosa, (-) throat erythema NECK: Soft, supple, (-) cervical LAD, (-)JVD HEART: S1S2 WNL, RRR, No MRG CHEST: CTA, BL, GAE, No W/R/R ABD: Soft, ND/NT, NABS 4x Q EXT: No C/C/RLE cdi SKIN: Warm to touch PSYCH: No active psychosis, hallucinations, depression, SI/HI Objective Active Medications: Acetaminophen (Tylenol Tab*) 975 mg PO Q8H REPLACED BY [facility] Last Admin: 09/16/18 16:23 Dose: 975 mg Diphenhydramine HCl (Benadryl Iv*) 25 mg IV Q6H PRN PRN Reason: itching Enoxaparin Sodium (Lovenox(*)) 30 mg SUBCUT Q24H [facility]PL[facility]ED [facility] Last Admin: 09/16/18 08:58 Dose: 30 mg Fludrocortisone Acetate (Florinef Tab*) 0.1 mg PO EVERY OTHER DAY [facility] Last Admin: 09/15/18 08:09 Dose: 0.1 mg Hydrocortisone (Cortef Tab*) 20 mg PO DAILY [facility] Last Admin: 09/16/18 08:56 Dose: 20 mg Hydrocortisone (Cortef Tab*) 10 mg PO QPM [facility] Last Admin: 09/15/18 18:08 Dose: 10 mg Vancomycin HCl 1,000 mg/ (Sodium Chloride) 250 mls @ 166.667 mls/hr IVPB 1000, 2200 [facility] Last Admin: 09/16/18 10:33 Dose: 166.667 mls/hr Magnesium Hydroxide (Milk Of Magnesia Liq*) 30 ml PO Q6H PRN PRN Reason: constipation Multivitamins (Theragran Tab*) 1 tab PO DAILY [facility] Last Admin: 09/16/18 08:56 Dose: 1 tab Ondansetron HCl (Zofran Inj*) 4 mg IV Q6H PRN PRN Reason: nausea Oxycodone HCl (Roxycodone Tab*) 10 mg PO Q4H PRN PRN Reason: PAIN - SEVERE Oxycodone HCl (Roxycodone Tab*) 5 mg PO Q4H PRN PRN Reason: PAIN - MODERATE Pharmacy Consult (Vancomycin Per Pharmacy*) 1 note FOLLOW UP . PRN PRN Reason: PER PROTOCOL Senna (Senokot Tab*) 2 tab PO BEDTIME PRN PRN Reason: if no BM during day Temazepam (Restoril Cap*) 15 mg PO BEDTIME PRN PRN Reason: INSOMNIA Vital Signs - 8 hr 09/16/18 09/16/18 09/16/18 11:39 12:48 15:48 Temperature 97.5 F 97.4 F Pulse Rate 71 74 Respiratory 20 20 Rate Blood Pressure 149/67 141/79 (mmHg) O2 Sat by Pulse 96 96 97 Oximetry Oxygen Devices in Use Now: None Result Diagrams: 09/16/18 05:29 09/16/18 05:29 Microbiology and Other Data: Microbiology 09/13/18 11:30 Anaerobic Culture - Preliminary Wound - Other No Growth Day 1 09/13/18 11:30 Gram Stain - Final Foot Right Wound Culture - Preliminary No Growth Day 1 09/13/18 11:30 Anaerobic Culture - Preliminary Wound No Growth Day 1 09/13/18 11:30 Skin and Soft Tissue MRSA/MSSA (PCR - Final Wound Mrsa Negative S.aureus Negative Gram Stain - Final Wound Culture - Preliminary No Growth Day 1 Assess/Plan/Problems-Billing 72M with adrenal insufficiency, HTN, and 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 Medicine consulted for management of HTN and CKD. Etiology of adrenal insufficiency is unknown, but pt reports it started when he had sepsis in 2009 and was in an ICU for weeks in a "coma". # Hyperkalemia. RESOLVED. K 6.1 on morning after surgery with no prior labs found. Was taking Bactrim and lisinopril prior to surgery and is noted to also have impaired renal function of unknown etiology (and unknown baseline function) . - s/p Patiromer 09/14 - cont to f/u BMP - caution with restart of lisinopril, if needed - Bactrim contraindicated #Normal anion gap metabolic acidosis. Could be RTA (Bactrim known to cause this) . Resolving. Urine anion gap 17 with pH of 5.0. - f/u BMPs # CKD - unclear baseline, attempting to obtain outside records - renally dose medications - avoid nephrotoxic medications # Adrenal insufficiency: - appreciate Endo input for steroid management - now on hydrocortisone 20mg qAM, 10mg qPM; fludrocortisone 0.1mg daily # HTN - holding home lisinopril and HCTZ Home with PT and infusions after PICC placement. - Patient Problems (1) Abscess Current Visit: Yes Status: Acute Code(s): L02.91 - CUTANEOUS ABSCESS, UNSPECIFIED SNOMED Code(s): 849726873 Comment: #R. forefoot deep infection w/abscess and OM: -S/P R. gastroc recession/Fabrizio procedure, right toe amputation at level of MTP joint, R. 2nd metatarsal head excision, R. foot irrihgation and debridement in multiple deep spaces, POD #3 (09/13) -Continue Vancomycin IV -Foot Wound Cx (09/13): (-) x 3 days; MRSA (-), S. aureus (-) -Recommend to touch base w/Dr. Hinton in AM to determine length and Abx regimen on planned D/C; PICC line planned for tomorrow (2) Hyperkalemia Current Visit: Yes Status: Acute Code(s): E87.5 - HYPERKALEMIA SNOMED Code (s): 11414361 Comment: -Resolved -Continue watchful waiting (3) Metabolic acidosis Current Visit: Yes Status: Acute Code(s): E87.2 - ACIDOSIS SNOMED Code(s) : 16022564 Comment: #NAGMA: -UAG = 17; thought to be due to RTA due to Bactrim in the setting of possible CKD with unclear baseline -Stable -Continue watchful waiting (4) CKD (chronic kidney disease) Current Visit: Yes Status: Acute Code(s): N18.9 - CHRONIC KIDNEY DISEASE, UNSPECIFIED SNOMED Code(s): 022374379 Comment: -Improved -Continue current regimen and avoidance of nephrotoxic meds (5) Adrenal insufficiency ([place]'s disease) Current Visit: Yes Status: Acute Code(s): E27.1 - PRIMARY ADRENOCORTICAL INSUFFICIENCY SNOMED Code(s): 090212348 Comment: -Continue Hydrocortisone and Fludrocortisone per Endo (6) HTN (hypertension) Current Visit: Yes Status: Acute Code(s): I10 - ESSENTIAL (PRIMARY) HYPERTENSION SNOMED Code(s): 63501851 Comment: -Well-controlled -Continue to hold Lisinopril and HCTZ (7) DVT prophylaxis Current Visit: Yes Status: Acute Code(s): HIC4044 - SNOMED Code(s): 553361970 Comment: -Continue Lovenox SQ Status and Disposition: -Defer w/ortho
[2018-09-17] MEDS: Acetaminophen TAB* 325 MG PO SCH ×3 (00:58→17:30)
[2018-09-17 07:11] LABS: ABS Basophils 0.1 10^3/ul (0-0.2); ABS Eosinophils 0.2 10^3/ul (0-0.6); ABS Lymphocytes 3.8 10^3/ul (1.0-4.8); ABS Monocytes 0.8 10^3/ul (0-0.8); ABS Neutrophils 5.6 10^3/ul (1.5-7.7); ABS Nucleated RBC 0 10^3/ul; Eosinophil % 2.3 %; Hematocrit 39 % (36-46); Hemoglobin 13.4 g/dL (14.0-18.0); Lymphocyte % 35.7 %; Mean Corpuscular HGB Conc 34 g/dL (31-36); Mean Corpuscular Hemoglobin 31 pg (27-31); Mean Corpuscular Volume 91 fL (80-94); Mean Platelet Volume 7.1 fL (7.4-10.4); Nucleated Red Blood Cells % 0; Platelet Count 397 10^3/uL (150-450); Red Blood Count 4.32 10^6 /uL (4.18-5.48); Red Cell Distribution Width 15 % (10.5-15); White Blood Count 10.6 10^3/uL (3.5-10.8)
[2018-09-17 07:36] LABS: Albumin 3.8 g/dL (3.2-5.2); Albumin/Globulin Ratio 1.5 (1-3); BUN/Creatinine Ratio 21.2 (8-20); EGFR African American 73.2 (>60); EGFR Non-African American 60.5 (>60); Globulin 2.6 g/dL (2-4); Magnesium 1.9 mg/dL (1.9-2.7); Phosphorus 3.6 mg/dL (2.5-5.0); Potassium 4.3 mmol/L (3.5-5.0); Total Bilirubin 0.3 mg/dL (0.2-1.0); Total Protein 6.4 g/dL (6.4-8.9)
--- NOTE | 2018-09-17 09:08 | PN ---
Progress Note - Progress Note Date of Service: 09/17/18 SOAP: Subjective: CC: Osteomyelitis HPI: Mr. Gurrola is a 72 yo male with PMH significant for adrenal insufficiency, HTN, CKD, and right foot osteomyelitis. He states that he has some mild discomfort in his right foot. Denies fever, chills, N/V/D, constipation. Objective: Vital Signs - 8 hr 09/17/18 09/17/18 03:11 08:00 Temperature 98.1 F 97.3 F Pulse Rate 59 61 Respiratory 18 16 Rate Blood Pressure 147/71 127/65 (mmHg) O2 Sat by Pulse 97 98 Oximetry Physical Exam: General: NAD, laying in bed Neurological: Alert and Oriented x 4 HEENT: No thrush Cardiovascular: Heart rate regular Respiratory: Lung sounds clear Abdominal: Bowel sounds present, ABD soft, non tender and non distended Skin: DRISS wrap to the right LE, No rash seen on exposed skin Laboratory Results - last 24 hr 09/17/18 09/17/18 06:59 06:59 WBC 10.6 RBC 4.32 Hgb 13.4 L Hct 39 MCV 91 MCH 31 MCHC 34 RDW 15 Plt Count 397 MPV 7.1 L Neut % (Auto) 53.4 Lymph % (Auto) 35.7 [place] % (Auto) 7.6 Eos % (Auto) 2.3 Baso % (Auto) 1.0 Absolute Neuts (auto) 5.6 Absolute Lymphs (auto) 3.8 Absolute Monos (auto) 0.8 Absolute Eos (auto) 0.2 Absolute Basos (auto) 0.1 Absolute Nucleated RBC 0 Nucleated RBC % 0 Sodium 136 Potassium 4.3 Chloride 106 Carbon Dioxide 22 Anion Gap 8 BUN 25 H Creatinine 1.18 H Est GFR ( Amer) 73.2 Est GFR (Non-Af Amer) 60.5 BUN/Creatinine Ratio 21.2 H Glucose 78 Calcium 9.0 Phosphorus 3.6 Magnesium 1.9 Total Bilirubin 0.30 AST 24 ALT 33 Alkaline Phosphatase 77 Total Protein 6.4 Albumin 3.8 Globulin 2.6 Albumin/Globulin Ratio 1.5 Microbiology 09/13/18 11:30 Anaerobic Culture - Preliminary Wound - Other No Growth Day 3 09/13/18 11:30 Gram Stain - Final Foot Right Wound Culture - Preliminary No Growth Day 3 09/13/18 11:30 Anaerobic Culture - Preliminary Wound No Growth Day 3 09/13/18 11:30 Skin and Soft Tissue MRSA/MSSA (PCR - Final Wound Mrsa Negative S.aureus Negative Gram Stain - Final Wound Culture - Preliminary No Growth Day 3 Assessment: 1. Osteomyelitis, Right foot. S/P right gastrocnemius recession, right 2nd toe amputation at the level of the MTP joint, right 2nd metatarsal head excision, and I+D, POD #4. Per operative report, there was an abscess present. Afebrile and no leukocytosis. 2. Acute on chronic kidney injury. Creatinine is improving, Plan: Vancomycin IV for 4 weeks, Day 09/23. Vanco trough goal 15-20. Weekly labs on Tuesdays while on vanco (CBC, CMP, CRP, and vanco trough). Will need to follow up with ID in 2-3 weeks outpatient.
[2018-09-17] MEDS: Vancomycin(*) 1,000 MG in NS 0.9% 250 ML* 250 ML IVPB SCH ×2 (09:31→22:01)
[2018-09-17] MEDS: Vitamin THERAPEUTIC TAB PO SCH (09:36)
[2018-09-17] MEDS: Hydrocortisone TAB* 10 MG PO SCH ×2 (09:46→17:31)
[2018-09-17] MEDS: Fludrocortisone Acetate TAB* 0.1 MG PO SCH (09:46)
[2018-09-17] MEDS: Enoxaparin(*) 30 MG/0.3 ML SYR SUBCUT SCH (09:47)
--- NOTE | 2018-09-17 15:45 | PN ---
Subjective Date of Service: 09/17/18 Interval History: Pt seen and examined. Meds and labs reviewed. CC: N/A ROS: Denied MUNIZ/dizziness, F/C, N/V, CP, SOB, increased cough, sputum production , abd pain, diarrhea, constipation, dysuria, myalgias, arthralgias, throat pain , and new skin lesions. The rest of the 14 point ROS are unremarkable. PHYSICAL EXAM: GEN APPEARANCE: Awake, not in acute distress HEENT: NC/AT, PERRLA, moist oral mucosa, (-) throat erythema NECK: Soft, supple, (-) cervical LAD, (-)JVD HEART: S1S2 WNL, RRR, No MRG CHEST: CTA, BL, GAE, No W/R/R ABD: Soft, ND/NT, NABS 4x Q EXT: No C/C/RLE cdi SKIN: Warm to touch PSYCH: No active psychosis, hallucinations, depression, SI/HI Objective Active Medications: Acetaminophen (Tylenol Tab*) 975 mg PO Q8H [facility] Last Admin: 09/17/18 09:35 Dose: 975 mg Diphenhydramine HCl (Benadryl Iv*) 25 mg IV Q6H PRN PRN Reason: itching Enoxaparin Sodium (Lovenox(*)) 30 mg SUBCUT Q24H [facility] Last Admin: 09/17/18 09:47 Dose: 30 mg Fludrocortisone Acetate (Florinef Tab*) 0.1 mg PO EVERY OTHER DAY [facility] Last Admin: 09/17/18 09:46 Dose: 0.1 mg Hydrocortisone (Cortef Tab*) 20 mg PO DAILY [facility] Last Admin: 09/17/18 09:46 Dose: 20 mg Hydrocortisone (Cortef Tab*) 10 mg PO QPM [facility] Last Admin: 09/16/18 18:19 Dose: 10 mg Vancomycin HCl 1,000 mg/ (Sodium Chloride) 250 mls @ 166.667 mls/hr IVPB 1000, 2200 [facility] Last Admin: 09/17/18 09:31 Dose: 166.667 mls/hr Magnesium Hydroxide (Milk Of Magnesia Liq*) 30 ml PO Q6H PRN PRN Reason: constipation Multivitamins (Theragran Tab*) 1 tab PO DAILY [facility] Last Admin: 09/17/18 09:36 Dose: 1 tab Ondansetron HCl (Zofran Inj*) 4 mg IV Q6H PRN PRN Reason: nausea Oxycodone HCl (Roxycodone Tab*) 10 mg PO Q4H PRN PRN Reason: PAIN - SEVERE Oxycodone HCl (Roxycodone Tab*) 5 mg PO Q4H PRN PRN Reason: PAIN - MODERATE Pharmacy Consult (Vancomycin Per Pharmacy*) 1 note FOLLOW UP . PRN PRN Reason: PER PROTOCOL Pharmacy Profile Note (Vancomycin Trough Check) 1 note FOLLOW UP 929 ONE Stop: 09/18/18 09:31 Senna (Senokot Tab*) 2 tab PO BEDTIME PRN PRN Reason: if no BM during day Temazepam (Restoril Cap*) 15 mg PO BEDTIME PRN PRN Reason: INSOMNIA Vital Signs - 8 hr 09/17/18 09/17/18 09/17/18 08:00 09:30 11:00 Temperature 97.3 F 98.5 F Pulse Rate 61 63 Respiratory 16 16 18 Rate Blood Pressure 127/65 131/55 (mmHg) O2 Sat by Pulse 98 98 Oximetry 09/17/18 15:22 Temperature 97.3 F Pulse Rate 68 Respiratory 24 Rate Blood Pressure 148/66 (mmHg) O2 Sat by Pulse 97 Oximetry Oxygen Devices in Use Now: None Result Diagrams: 09/17/18 06:59 09/17/18 06:59 Microbiology and Other Data: Microbiology 09/13/18 11:30 Anaerobic Culture - Preliminary Wound - Other No Growth Day 1 09/13/18 11:30 Gram Stain - Final Foot Right Wound Culture - Preliminary No Growth Day 1 09/13/18 11:30 Anaerobic Culture - Preliminary Wound No Growth Day 1 09/13/18 11:30 Skin and Soft Tissue MRSA/MSSA (PCR - Final Wound Mrsa Negative S.aureus Negative Gram Stain - Final Wound Culture - Preliminary No Growth Day 1 Assess/Plan/Problems-Billing 72M with adrenal insufficiency, HTN, and 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 Medicine consulted for management of HTN and CKD. Etiology of adrenal insufficiency is unknown, but pt reports it started when he had sepsis in 2009 and was in an ICU for weeks in a "coma". # Hyperkalemia. RESOLVED. K 6.1 on morning after surgery with no prior labs found. Was taking Bactrim and lisinopril prior to surgery and is noted to also have impaired renal function of unknown etiology (and unknown baseline function) . - s/p Patiromer 09/14 - cont to f/u BMP - caution with restart of lisinopril, if needed - Bactrim contraindicated #Normal anion gap metabolic acidosis. Could be RTA (Bactrim known to cause this) . Resolving. Urine anion gap 17 with pH of 5.0. - f/u BMPs # CKD - unclear baseline, attempting to obtain outside records - renally dose medications - avoid nephrotoxic medications # Adrenal insufficiency: - appreciate Endo input for steroid management - now on hydrocortisone 20mg qAM, 10mg qPM; fludrocortisone 0.1mg daily # HTN - holding home lisinopril and HCTZ Home with PT and infusions after PICC placement. - Patient Problems (1) Abscess Current Visit: Yes Status: Acute Code(s): L02.91 - CUTANEOUS ABSCESS, UNSPECIFIED SNOMED Code(s): 755497403 Comment: #R. forefoot deep infection w/abscess and OM: -S/P R. gastroc recession/Fabrizio procedure, right toe amputation at level of MTP joint, R. 2nd metatarsal head excision, R. foot irrihgation and debridement in multiple deep spaces, POD #4 (09/13) -Continue Vancomycin IV -Foot Wound Cx (09/13): (-) x 3 days; MRSA (-), S. aureus (-) -ID reccs: Vancomycin IV for 4 weeks, Day 09/23. Vanco trough goal 15-20. Weekly labs on Tuesdays while on vanco (CBC, CMP, CRP, and vanco trough). Will need to follow up with ID in 2-3 weeks outpatient. -Informed by Care coordinators that there is no vascular team for the rest of the week. Called and left a message in Dr. Matute office after attempting to call cell phone. Called texted number. No response; d/w care coordinators (2) Hyperkalemia Current Visit: Yes Status: Acute Code(s): E87.5 - HYPERKALEMIA SNOMED Code (s): 90284756 Comment: -Resolved -Continue watchful waiting (3) Metabolic acidosis Current Visit: Yes Status: Acute Code(s): E87.2 - ACIDOSIS SNOMED Code(s) : 29109821 Comment: #NAGMA: -Resolved -UAG = 17; thought to be due to RTA due to Bactrim in the setting of possible CKD with unclear baseline -Stable -Continue watchful waiting (4) CKD (chronic kidney disease) Current Visit: Yes Status: Acute Code(s): N18.9 - CHRONIC KIDNEY DISEASE, UNSPECIFIED SNOMED Code(s): 734478419 Comment: -Improved -Continue current regimen and avoidance of nephrotoxic meds (5) Adrenal insufficiency ([place]'s disease) Current Visit: Yes Status: Acute Code(s): E27.1 - PRIMARY ADRENOCORTICAL INSUFFICIENCY SNOMED Code(s): 114620193 Comment: -Continue Hydrocortisone and Fludrocortisone per Endo (6) HTN (hypertension) Current Visit: Yes Status: Acute Code(s): I10 - ESSENTIAL (PRIMARY) HYPERTENSION SNOMED Code(s): 20620209 Comment: -Well-controlled -Continue to hold Lisinopril and HCTZ (7) DVT prophylaxis Current Visit: Yes Status: Acute Code(s): EKV2830 - SNOMED Code(s): 313099908 Comment: -Continue Lovenox SQ Status and Disposition: -Defer w/ortho -For PICC line placement
--- NOTE | 2018-09-17 15:57 | PN ---
Progress Note - Progress Note Date of Service: 09/17/18 SOAP: Subjective: [POD #4 from L 2nd partial ray amputation and donnie. Pt is doing well, pain controlled with meds. Denies CP, SOB, calf pain, fever/chills. Pt states he feels good and is ready to go home. Awaiting PICC line prior to d/c. ] Objective: [ Vital Signs Temp Pulse Resp BP Pulse Ox 97.3 F 68 24 148/66 97 09/17/18 15:22 09/17/18 15:22 09/17/18 15:22 09/17/18 15:22 09/17/18 15:22 General: A&O x 3. NAD at rest. LLE: Dressing CDI. + F/E MTP. Decreased sensation due to peripheral neuropathy. Laboratory Last Values WBC 10.6 10^3/uL (3.5-10.8) 09/17/18 06:59 RBC 4.32 10^6 /uL (4.18-5.48) 09/17/18 06:59 Hgb 13.4 g/dL (14.0-18.0) L 09/17/18 06:59 Hct 39 % (36-46) 09/17/18 06:59 MCV 91 fL (80-94) 09/17/18 06:59 MCH 31 pg (27-31) 09/17/18 06:59 MCHC 34 g/dL (31-36) 09/17/18 06:59 RDW 15 % (10.5-15) 09/17/18 06:59 Plt Count 397 10^3/uL (150-450) 09/17/18 06:59 MPV 7.1 fL (7.4-10.4) L 09/17/18 06:59 Neut % (Auto) 53.4 % 09/17/18 06:59 Lymph % (Auto) 35.7 % 09/17/18 06:59 [place] % (Auto) 7.6 % 09/17/18 06:59 Eos % (Auto) 2.3 % 09/17/18 06:59 Baso % (Auto) 1.0 % 09/17/18 06:59 Absolute Neuts (auto) 5.6 10^3/ul (1.5-7.7) 09/17/18 06:59 Absolute Lymphs (auto) 3.8 10^3/ul (1.0-4.8) 09/17/18 06:59 Absolute Monos (auto) 0.8 10^3/ul (0-0.8) 09/17/18 06:59 Absolute Eos (auto) 0.2 10^3/ul (0-0.6) 09/17/18 06:59 Absolute Basos (auto) 0.1 10^3/ul (0-0.2) 09/17/18 06:59 Absolute Nucleated RBC 0 10^3/ul 09/17/18 06:59 Nucleated RBC % 0 09/17/18 06:59 Sodium 136 mmol/L (135-145) 09/17/18 06:59 Potassium 4.3 mmol/L (3.5-5.0) 09/17/18 06:59 Chloride 106 mmol/L (101-111) 09/17/18 06:59 Carbon Dioxide 22 mmol/L (22-32) 09/17/18 06:59 Anion Gap 8 mmol/L (2-11) 09/17/18 06:59 BUN 25 mg/dL (6-24) H 09/17/18 06:59 Creatinine 1.18 mg/dL (0.67-1.17) H 09/17/18 06:59 Est GFR ( Amer) 73.2 (>60) 09/17/18 06:59 Est GFR (Non-Af Amer) 60.5 (>60) 09/17/18 06:59 BUN/Creatinine Ratio 21.2 (8-20) H 09/17/18 06:59 Glucose 78 mg/dL (70-100) 09/17/18 06:59 Calcium 9.0 mg/dL (8.6-10.3) 09/17/18 06:59 Phosphorus 3.6 mg/dL (2.5-5.0) 09/17/18 06:59 Magnesium 1.9 mg/dL (1.9-2.7) 09/17/18 06:59 Total Bilirubin 0.30 mg/dL (0.2-1.0) 09/17/18 06:59 AST 24 U/L (13-39) 09/17/18 06:59 ALT 33 U/L (7-52) 09/17/18 06:59 Alkaline Phosphatase 77 U/L (34-104) 09/17/18 06:59 Total Protein 6.4 g/dL (6.4-8.9) 09/17/18 06:59 Albumin 3.8 g/dL (3.2-5.2) 09/17/18 06:59 Globulin 2.6 g/dL (2-4) 09/17/18 06:59 Albumin/Globulin Ratio 1.5 (1-3) 09/17/18 06:59 Urine pH 5.0 (5-9) 09/14/18 17:45 Urine Osmolality 360 mOsm/kg (100-1150) 09/14/18 17:45 U Sodium Concentration 75 mmol/L 09/14/18 17:45 Urine Potassium 23.4 mmol/L 09/14/18 17:45 Ur Chloride Concentrat 81 mmol/L 09/14/18 17:45 Vancomycin Trough 14.1 mcg/mL 09/15/18 09:51 ] Assessment: [POD #4 from L 2nd partial ray amputation and donnie.] Plan: [Hopefully PICC line will be placed today so that d/c can be done tomorrow morning. Continue IV Abx per ID F/u with Dr. Rueda POD 10]
--- NOTE | 2018-09-17 22:24 | CONS ---
CONSULTATION REPORT: DATE OF CONSULT: 09/14/18 PRIMARY CARE PROVIDER: Dr. Emery in [place], [place]. PHYSICIAN REQUESTING CONSULT: Dr. Kapil Rueda. CONSULTING SERVICE: Infectious Disease. PROVIDER: Dr. Lorenzo Hinton * (dictated by Nelly Byrne NP). REASON FOR CONSULT: Osteomyelitis. MPRESSION: 1. Osteomyelitis of the right second toe. After discussion with Dr. Rueda, he was unable to completely resect the infected bone at the right second metatarsal. There was a soft tissue abscess noted during surgery. He is now status post right foot second toe amputation, second metatarsal head resection, and irrigation and debridement of the soft tissue abscess. He did have cultures obtained while in the OR. He has been on Bactrim leading up to his surgery, so this may prevent any bacteria growth. We will continue to follow the cultures. 2. Hypertension. 3. [place] disease. 4. Peripheral neuropathy. 5. Hyperkalemia. PLAN/RECOMMENDATION: The plan will be for vancomycin intravenously for 4 weeks. The patient will need to have a PICC line placed for the long-term antibiotics. HISTORY OF PRESENT ILLNESS: Mr. Gurrola is a 72-year-old male with past medical history significant for hypertension, [place] disease, peripheral neuropathy, who is being followed by Dr. Rueda with orthopedics outpatient for right forefoot deformity and concern for persistent infection. In March 2018, he underwent a right fourth toe amputation due to infection and a necrotic toe. In May, he was found to be bacteremic and was found to have an infection at the right second MTP joint. At that time, he was status post an I and D of the second toe and was hospitalized for 10 days and had a prolonged course of outpatient IV antibiotics. He reports recently completing a course of oral antibiotics and then noticed increasing pain and swelling in his right forefoot. He was being followed closely by Dr. Rueda outpatient. Due to his worsening symptoms, he came to the hospital and underwent a right second toe amputation, second metatarsal head resection and irrigation and debridement of soft tissue abscess with Dr. Rueda on 09/13/18. He denies any fevers, chills, urinary symptoms, nausea, vomiting, diarrhea, denies any joint pain. He does endorse some discomfort in the right foot, but he has peripheral neuropathy at baseline. He denies diabetes mellitus. PAST MEDICAL HISTORY: 1. Hypertension. 2. [place] disease, unknown etiology. 3. Peripheral neuropathy. PAST SURGICAL HISTORY: 1. Status post right second toe I and D. 2. Status post right fourth toe amputation. 3. Status post right foot second toe amputation, second metatarsal head resection, and irrigation and debridement of soft tissue abscess on 09/13/18. MEDICATIONS: Home medications include: 1. Fludrocortisone 0.1 mg by mouth every other day. 2. Hydrocortisone 10 mg by mouth every evening. 3. Hydrochlorothiazide 12.5 mg by mouth every morning. 4. Bactrim DS 800/160 mg 1 tablet by mouth every morning. 5. Lisinopril 20 mg by mouth every morning. 6. Hydrocortisone 20 mg by mouth every day. Hospital medications: 1. Acetaminophen 975 mg by mouth every 8 hours. 2. Benadryl 25 mg IV every 6 hours as needed for itching. 3. Lovenox 30 mg subcutaneous daily. 4. Fludrocortisone 0.1 mg by mouth every other day. 5. Milk of magnesia 30 mL by mouth every 6 hours as needed for constipation. 6. Multivitamin 1 tablet by mouth daily. 7. Zofran 4 mg IV every 6 hours as needed for nausea. 8. Oxycodone 5 mg by mouth every 4 hours as needed for pain. 9. Oxycodone 10 mg by mouth every 4 hours as needed for pain. 10. Senokot 2 tablets by mouth daily at bedtime as needed for constipation. 11. Restoril 15 mg by mouth at bedtime as needed for sleep. 12. Vancomycin 1000 mg IV q.12 hours. ALLERGIES: No known drug allergies. FAMILY HISTORY: Mother with a history of cancer. Father passed due to a motor vehicle accident, but had a history of diabetes, coronary artery disease, and hypertension. He denies any family history of resistant recurrent infection. 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 He is a former smoker, quitting in 1969. He denies alcohol or recreation drug use. REVIEW OF SYSTEMS: I performed a 10-point review of systems. All the pertinent positives and negatives are mentioned in the history of present illness. The remaining review of systems is negative. Denies any recent travel. PHYSICAL EXAM: Vital Signs: Temperature 98.2, heart rate 72, respiratory rate 16, O2 sat 97% on room air, blood pressure 140/60. General Appearance: The patient is alert, appears to be in no acute distress. Head: Normocephalic, atraumatic. ENT: Pupils are equal and reactive to light. Extraocular movements are intact. Mucous membranes are moist. Neck: Neck is supple. No lymphadenopathy noted. Neurological: Alert and oriented x4. Cranial nerves II through XII are grossly intact. Cardiovascular: Regular rate and rhythm. S1 and S2 present. No murmurs, rubs, or gallops heard. Respiratory: Lung sounds are clear to auscultation bilateral. Abdomen: Bowel sounds are present. Abdomen is soft, nontender, large but nondistended. Extremities: No lower extremity edema. Peal pulses positive on the left, unable to palpate the right due to bandage in place, but palpable pedal pulses present on the right. Musculoskeletal: No clubbing or cyanosis noted. The patient exhibits good strength in all extremities. Psychological: Calm and cooperative. Skin: No rashes or abnormalities seen on the exposed skin. He does have a splint and Torito wrap intact to the right lower extremity. DIAGNOSTIC STUDIES/LAB DATA: Sodium 129, potassium 5.3, chloride 101, CO2 18, BUN 34, creatinine 1.86, glucose 126. Hemoglobin 14.7, hematocrit 43, platelet count 426. Please see the impression and recommendations outlined above. Thank you for asking us to see Mr. Gurrola in consultation. TIME SPENT: Time spent for this consultation was approximately 45 minutes, greater than half of that was spent with the patient discussing medications, past medical history, the events leading to his arrival today, and performing a physical examination. The case has been reviewed with the attending, Dr. Hinton, who agrees with the plan of care. Reviewed by RUBEN MEYERS 09/20/18 1347 [id number]/[facility] #: [id number] BA
[2018-09-18] MEDS: Acetaminophen TAB* 325 MG PO SCH ×3 (03:28→17:17)
[2018-09-18 07:31] LABS: ABS Basophils 0.1 10^3/ul (0-0.2); ABS Eosinophils 0.3 10^3/ul (0-0.6); ABS Lymphocytes 3.4 10^3/ul (1.0-4.8); ABS Monocytes 0.6 10^3/ul (0-0.8); ABS Neutrophils 5.4 10^3/ul (1.5-7.7); ABS Nucleated RBC 0 10^3/ul; Hematocrit 39 % (36-46); Hemoglobin 13.4 g/dL (14.0-18.0); Lymphocyte % 34.7 %; Mean Corpuscular HGB Conc 34 g/dL (31-36); Mean Corpuscular Hemoglobin 31 pg (27-31); Mean Corpuscular Volume 90 fL (80-94); Mean Platelet Volume 7.2 fL (7.4-10.4); Nucleated Red Blood Cells % 0.1; Platelet Count 413 10^3/uL (150-450); Red Blood Count 4.32 10^6 /uL (4.18-5.48); Red Cell Distribution Width 15 % (10.5-15); White Blood Count 9.8 10^3/uL (3.5-10.8)
[2018-09-18 07:34] LABS: INR 0.95 (0.82-1.09)
[2018-09-18 07:48] LABS: Albumin 3.9 g/dL (3.2-5.2); Albumin/Globulin Ratio 1.4 (1-3); BUN/Creatinine Ratio 22.1 (8-20); Calcium 9.3 mg/dL (8.6-10.3); EGFR Non-African American 63.6 (>60); Globulin 2.8 g/dL (2-4); Potassium 4.1 mmol/L (3.5-5.0); Total Bilirubin 0.3 mg/dL (0.2-1.0); Total Protein 6.7 g/dL (6.4-8.9)
[2018-09-18] MEDS ORDERED: Vancomycin Trough Check NOTE FOLLOW UP ONE (09:30)
[2018-09-18] MEDS: Hydrocortisone TAB* 10 MG PO SCH ×2 (09:55→18:01)
[2018-09-18] MEDS: Vitamin THERAPEUTIC TAB PO SCH (09:55)
[2018-09-18] MEDS: Enoxaparin(*) 30 MG/0.3 ML SYR SUBCUT SCH (09:55)
--- NOTE | 2018-09-18 10:50 | PN ---
Progress Note - Progress Note Date of Service: 09/18/18 SOAP: Subjective: CC: Osteomyelitis HPI: Mr. Gurrola is a 72 yo male with PMH significant for adrenal insufficiency, HTN, CKD, and right foot osteomyelitis. He states that he has some mild discomfort in his right foot. Denies fever, chills, N/V/D, constipation. He is anxious to get home. PICC was placed today. Objective: Vital Signs - 8 hr 09/18/18 09/18/18 09/18/18 03:12 03:15 10:13 Temperature 97.6 F 97.6 F 97.4 F Pulse Rate 57 57 63 Respiratory 18 18 16 Rate Blood Pressure 132/63 132/63 181/84 (mmHg) O2 Sat by Pulse 98 98 98 Oximetry Physical Exam: General: NAD, sitting up in bed HEENT: No thrush Neurological: Alert and Oriented x4 Cardiovascular: Heart rate regular Respiratory: Lung sounds clear Abdominal: Bowel sounds present; ABD soft, large, non tender Skin: No rash Laboratory Last Values WBC 9.8 10^3/uL (3.5-10.8) 09/18/18 07:15 RBC 4.32 10^6 /uL (4.18-5.48) 09/18/18 07:15 Hgb 13.4 g/dL (14.0-18.0) L 09/18/18 07:15 Hct 39 % (36-46) 09/18/18 07:15 MCV 90 fL (80-94) 09/18/18 07:15 MCH 31 pg (27-31) 09/18/18 07:15 MCHC 34 g/dL (31-36) 09/18/18 07:15 RDW 15 % (10.5-15) 09/18/18 07:15 Plt Count 413 10^3/uL (150-450) 09/18/18 07:15 MPV 7.2 fL (7.4-10.4) L 09/18/18 07:15 Neut % (Auto) 54.6 % 09/18/18 07:15 Lymph % (Auto) 34.7 % 09/18/18 07:15 [place] % (Auto) 6.6 % 09/18/18 07:15 Eos % (Auto) 3.0 % 09/18/18 07:15 Baso % (Auto) 1.1 % 09/18/18 07:15 Absolute Neuts (auto) 5.4 10^3/ul (1.5-7.7) 09/18/18 07:15 Absolute Lymphs (auto) 3.4 10^3/ul (1.0-4.8) 09/18/18 07:15 Absolute Monos (auto) 0.6 10^3/ul (0-0.8) 09/18/18 07:15 Absolute Eos (auto) 0.3 10^3/ul (0-0.6) 09/18/18 07:15 Absolute Basos (auto) 0.1 10^3/ul (0-0.2) 09/18/18 07:15 Absolute Nucleated RBC 0 10^3/ul 09/18/18 07:15 Nucleated RBC % 0.1 09/18/18 07:15 INR (Anticoag Therapy) 0.95 (0.82-1.09) 09/18/18 07:15 Sodium 138 mmol/L (135-145) 09/18/18 07:15 Potassium 4.1 mmol/L (3.5-5.0) 09/18/18 07:15 Chloride 107 mmol/L (101-111) 09/18/18 07:15 Carbon Dioxide 22 mmol/L (22-32) 09/18/18 07:15 Anion Gap 9 mmol/L (2-11) 09/18/18 07:15 BUN 25 mg/dL (6-24) H 09/18/18 07:15 Creatinine 1.13 mg/dL (0.67-1.17) 09/18/18 07:15 Est GFR ( Amer) 77.0 (>60) 09/18/18 07:15 Est GFR (Non-Af Amer) 63.6 (>60) 09/18/18 07:15 BUN/Creatinine Ratio 22.1 (8-20) H 09/18/18 07:15 Glucose 82 mg/dL (70-100) 09/18/18 07:15 Calcium 9.3 mg/dL (8.6-10.3) 09/18/18 07:15 Phosphorus 3.6 mg/dL (2.5-5.0) 09/17/18 06:59 Magnesium 2.0 mg/dL (1.9-2.7) 09/18/18 07:15 Total Bilirubin 0.30 mg/dL (0.2-1.0) 09/18/18 07:15 AST 19 U/L (13-39) 09/18/18 07:15 ALT 32 U/L (7-52) 09/18/18 07:15 Alkaline Phosphatase 79 U/L (34-104) 09/18/18 07:15 Total Protein 6.7 g/dL (6.4-8.9) 09/18/18 07:15 Albumin 3.9 g/dL (3.2-5.2) 09/18/18 07:15 Globulin 2.8 g/dL (2-4) 09/18/18 07:15 Albumin/Globulin Ratio 1.4 (1-3) 09/18/18 07:15 Urine pH 5.0 (5-9) 09/14/18 17:45 Urine Osmolality 360 mOsm/kg (100-1150) 09/14/18 17:45 U Sodium Concentration 75 mmol/L 09/14/18 17:45 Urine Potassium 23.4 mmol/L 09/14/18 17:45 Ur Chloride Concentrat 81 mmol/L 09/14/18 17:45 Vancomycin Trough 14.1 mcg/mL 09/15/18 09:51 Microbiology 09/13/18 11:30 Anaerobic Culture - Final Wound - Other No Growth Day 4 09/13/18 11:30 Gram Stain - Final Foot Right Wound Culture - Final No Growth Day 4 09/13/18 11:30 Anaerobic Culture - Final Wound No Growth Day 4 09/13/18 11:30 Skin and Soft Tissue MRSA/MSSA (PCR - Final Wound Mrsa Negative S.aureus Negative Gram Stain - Final Wound Culture - Final No Growth Day 4 Assessment: 1. Osteomyelitis, Right foot. S/P right gastrocnemius recession, right 2nd toe amputation at the level of the MTP joint, right 2nd metatarsal head excision, and I+D, POD #5. Per operative report, there was an abscess present. Wound cultures with no growth, day 4. He was on Bactrim at the time of admission which may have suppressed bacteria growth in the cultures. Afebrile and no leukocytosis. 2. Acute on chronic kidney injury. Creatinine is improving, Plan: Vancomycin IV for 4 weeks, Day 10/23. Vanco trough goal 15-20. Weekly labs on Tuesdays while on vanco (CBC, CMP, CRP, and vanco trough). Vanco trough for today is pending at this time. Plan for infusions at [facility]. Will need to follow up with ID in 2-3 weeks outpatient.
[2018-09-18] MEDS: Vancomycin(*) 1,000 MG in NS 0.9% 250 ML* 250 ML IVPB SCH (11:27)
--- NOTE | 2018-09-18 12:35 | DS ---
Orthopedic Discharge Summary - Discharge Summary Date of Admission:09/13/18 Date of Discharge: 09/18/18 Date of Surgery: 09/13/18 Attending Orthopedic Provider: Dr Rueda Pre-operative Diagnosis: Operative Procedure: [Left 2nd partial ray amputation and donnie] Condition of Patient: [stable] History: MÓNICA WINCHESTER is a 72 year old M with Hospital Course: MÓNICA was admitted to [facility] on 09/13/18. Patient underwent a [Left 2nd partial ray amputation and donnie] without complication followed by a brief recovery in PACU and transfer to the Short Stay Surgical Unit in stable condition. Our hospitalist service, environmental engineering professor , infectious disease, physical therapy and occupational therapy also participated in this patients care. Patient was placed on vancomycin, he was given stress dosing of steroids. 09/18/18 he appeared well, splint CDI, MTPs f/e intact, sensation decreased but baseline to light touch distally, cap refill less than two seconds distally. Picc was placed and he was deemed to to be orthopedically and medically ready for DC home. Discussed DC with medicine, he will resume home dose of steroids, hold his hctz for 2 more days and follow up with his PCP in 2-3 days. Discharge Medications Medication Instructions Recorded Confirmed Type Fluidrocortisone 0.1 mg PO EVERY OTHER DAY 09/12/18 09/13/18 History Hydrocortisone TAB* [Cortef TAB*] 10 mg PO QPM 09/12/18 09/13/18 History Hydrocortisone TAB* [Cortef TAB*] 20 mg PO QAM 09/12/18 09/12/18 History Lisinopril TAB* [Prinivil TAB 10 20 mg PO QAM 09/12/18 09/12/18 History MG*] Acetaminophen TAB* [Tylenol TAB*] 975 mg PO Q8H tab 09/18/18 Rx Enoxaparin(*) [Lovenox(*)] 30 mg SUBCUT Q24H #30 syringe 09/18/18 Rx hydroCHLOROthiazide 12.5 mg PO QAM #0 09/18/18 09/12/18 Rx [Hydrochlorothiazide] oxyCODONE TAB* [Roxycodone TAB 5 5 mg PO Q4H PRN #30 tab MDD 6 09/18/18 Rx mg*] Discharge instruction Discharge to home in stable condition following Left 2nd partial ray amputation and donnie Nonweightbearing right lower extremity Keep Dressing/splint clean, dry and intact until follow up appt Follow up with Dr Rueda as directed, if you do not have an appt make one for 10-14 days post op. Call with increased pain, redness, swelling, discharge, fever or chills. Go to the emergency room with chest pain or shortness of breath Lovenox 30 mg injection daily while immobilized for DVT prophylaxis. This increases bleeding tendency. Oxycodone 5 mg 1-2 tabs every 4 hours as needed for pain, max of 6 per day. Hold for sedation, wean off as soon as pain allows Hold Hydrochlorothiazide for 2 more days then resume on 09/20. Follow up with PCP within 3 days Per infectious disease: Vancomycin IV for 4 weeks. Vanco trough goal 15-20. Weekly labs on Tuesdays while on vanco (CBC, CMP, CRP, and vanco trough). Plan for infusions at [facility]. Will need to follow up with ID in 2-3 weeks outpatient.
[2018-09-18 15:37] VITALS: BP 167/70
[2018-09-18] MEDS ORDERED: Vancomycin(*) 1,000 MG in NS 0.9% 250 ML* 250 ML IVPB SCH (18:00)
--- NOTE | 2018-09-18 18:03 | PN ---
Subjective Date of Service: 09/18/18 Interval History: Pt seen and examined. Meds and labs reviewed. CC: N/A ROS: Denied MUNIZ/dizziness, F/C, N/V, CP, SOB, increased cough, sputum production , abd pain, diarrhea, constipation, dysuria, myalgias, arthralgias, throat pain , and new skin lesions. The rest of the 14 point ROS are unremarkable. PHYSICAL EXAM: GEN APPEARANCE: Awake, not in acute distress HEENT: NC/AT, PERRLA, moist oral mucosa, (-) throat erythema NECK: Soft, supple, (-) cervical LAD, (-)JVD HEART: S1S2 WNL, RRR, No MRG CHEST: CTA, BL, GAE, No W/R/R ABD: Soft, ND/NT, NABS 4x Q EXT: No C/C/RLE cdi SKIN: Warm to touch PSYCH: No active psychosis, hallucinations, depression, SI/HI Objective Active Medications: Acetaminophen (Tylenol Tab*) 975 mg PO Q8H [facility] Last Admin: 09/18/18 17:17 Dose: 975 mg Diphenhydramine HCl (Benadryl Iv*) 25 mg IV Q6H PRN PRN Reason: itching Enoxaparin Sodium (Lovenox(*)) 30 mg SUBCUT Q24H [facility] Last Admin: 09/18/18 09:55 Dose: 30 mg Fludrocortisone Acetate (Florinef Tab*) 0.1 mg PO EVERY OTHER DAY [facility] Last Admin: 09/17/18 09:46 Dose: 0.1 mg Heparin Sodium (Porcine) (Heparin Flush Picc/Ml/Cvc(*)) 0 ml FLUSH 0600,1800 [facility]; Protocol Last Admin: 09/18/18 14:31 Dose: 1 ml Hydrocortisone (Cortef Tab*) 20 mg PO DAILY [facility] Last Admin: 09/18/18 09:55 Dose: 20 mg Hydrocortisone (Cortef Tab*) 10 mg PO QPM [facility] Last Admin: 09/18/18 18:01 Dose: 10 mg Vancomycin HCl 1,000 mg/ (Sodium Chloride) 250 mls @ 166.667 mls/hr IVPB Q12H [facility] Last Admin: 09/18/18 18:01 Dose: 166.667 mls/hr Magnesium Hydroxide (Milk Of Magnesia Liq*) 30 ml PO Q6H PRN PRN Reason: constipation Multivitamins (Theragran Tab*) 1 tab PO DAILY [facility] Last Admin: 09/18/18 09:55 Dose: 1 tab Ondansetron HCl (Zofran Inj*) 4 mg IV Q6H PRN PRN Reason: nausea Oxycodone HCl (Roxycodone Tab*) 10 mg PO Q4H PRN PRN Reason: PAIN - SEVERE Oxycodone HCl (Roxycodone Tab*) 5 mg PO Q4H PRN PRN Reason: PAIN - MODERATE Pharmacy Consult (Vancomycin Per Pharmacy*) 1 note FOLLOW UP . PRN PRN Reason: PER PROTOCOL Senna (Senokot Tab*) 2 tab PO BEDTIME PRN PRN Reason: if no BM during day Temazepam (Restoril Cap*) 15 mg PO BEDTIME PRN PRN Reason: INSOMNIA Vital Signs - 8 hr 09/18/18 09/18/18 09/18/18 10:13 10:15 15:36 Temperature 97.4 F 97.4 F Pulse Rate 63 63 Respiratory 16 16 Rate Blood Pressure 181/84 181/84 167/70 (mmHg) O2 Sat by Pulse 98 98 Oximetry Oxygen Devices in Use Now: None Result Diagrams: 09/18/18 07:15 09/18/18 07:15 Microbiology and Other Data: Microbiology 09/13/18 11:30 Anaerobic Culture - Preliminary Wound - Other No Growth Day 1 09/13/18 11:30 Gram Stain - Final Foot Right Wound Culture - Preliminary No Growth Day 1 09/13/18 11:30 Anaerobic Culture - Preliminary Wound No Growth Day 1 09/13/18 11:30 Skin and Soft Tissue MRSA/MSSA (PCR - Final Wound Mrsa Negative S.aureus Negative Gram Stain - Final Wound Culture - Preliminary No Growth Day 1 Assess/Plan/Problems-Billing 72M with adrenal insufficiency, HTN, and 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 Medicine consulted for management of HTN and CKD. Etiology of adrenal insufficiency is unknown, but pt reports it started when he had sepsis in 2009 and was in an ICU for weeks in a "coma". # Hyperkalemia. RESOLVED. K 6.1 on morning after surgery with no prior labs found. Was taking Bactrim and lisinopril prior to surgery and is noted to also have impaired renal function of unknown etiology (and unknown baseline function) . - s/p Patiromer 09/14 - cont to f/u BMP - caution with restart of lisinopril, if needed - Bactrim contraindicated #Normal anion gap metabolic acidosis. Could be RTA (Bactrim known to cause this) . Resolving. Urine anion gap 17 with pH of 5.0. - f/u BMPs # CKD - unclear baseline, attempting to obtain outside records - renally dose medications - avoid nephrotoxic medications # Adrenal insufficiency: - appreciate Endo input for steroid management - now on hydrocortisone 20mg qAM, 10mg qPM; fludrocortisone 0.1mg daily # HTN - holding home lisinopril and HCTZ Home with PT and infusions after PICC placement. - Patient Problems (1) Abscess Current Visit: Yes Status: Acute Code(s): L02.91 - CUTANEOUS ABSCESS, UNSPECIFIED SNOMED Code(s): 469571484 Comment: #R. forefoot deep infection w/abscess and OM: -S/P R. gastroc recession/Fabrizio procedure, right toe amputation at level of MTP joint, R. 2nd metatarsal head excision, R. foot irrihgation and debridement in multiple deep spaces, POD #5 (09/13) -Continue Vancomycin IV -Foot Wound Cx (09/13): (-) x 3 days; MRSA (-), S. aureus (-) -ID reccs: Vancomycin IV for 4 weeks, Day 09/23. Vanco trough goal 15-20. Weekly labs on Tuesdays while on vanco (CBC, CMP, CRP, and vanco trough). Will need to follow up with ID in 2-3 weeks outpatient. -S/P PICC line placement early in AM (2) Hyperkalemia Current Visit: Yes Status: Acute Code(s): E87.5 - HYPERKALEMIA SNOMED Code (s): 77442819 Comment: -Resolved -Continue watchful waiting (3) Metabolic acidosis Current Visit: Yes Status: Acute Code(s): E87.2 - ACIDOSIS SNOMED Code(s) : 15635517 Comment: #NAGMA: -Resolved -UAG = 17; thought to be due to RTA due to Bactrim in the setting of possible CKD with unclear baseline -Stable -Continue watchful waiting (4) CKD (chronic kidney disease) Current Visit: Yes Status: Acute Code(s): N18.9 - CHRONIC KIDNEY DISEASE, UNSPECIFIED SNOMED Code(s): 605068842 Comment: -Improved -Continue current regimen and avoidance of nephrotoxic meds (5) Adrenal insufficiency (Maybee's disease) Current Visit: Yes Status: Acute Code(s): E27.1 - PRIMARY ADRENOCORTICAL INSUFFICIENCY SNOMED Code(s): 281667036 Comment: -Continue Hydrocortisone and Fludrocortisone per Endo (6) HTN (hypertension) Current Visit: Yes Status: Acute Code(s): I10 - ESSENTIAL (PRIMARY) HYPERTENSION SNOMED Code(s): 26688637 Comment: -Well-controlled -Continue to hold Lisinopril and HCTZ (7) DVT prophylaxis Current Visit: Yes Status: Acute Code(s): EMS1637 - SNOMED Code(s): 223987234 Comment: -Continue Lovenox SQ Status and Disposition: -For planned D/C today -Defer w/ortho; will S/O of case. Please call us if with questions. Thank you for having us participate in Mr. Tran care and management
== END 2018-09-18 20:53 | disposition home health service (06) | DRG 464 ==
LOC: OR 08:22 → MED 12:23
PROVIDERS: ADMIT Orthopaedic Surgery; ATTEND Orthopaedic Surgery
PROC: 0Y6M0ZB Detachment at Right Foot, Partial 2nd Ray, Open Approach (ICD-10-PCS; 2018-09-13)
PROC: 0L8N0ZZ Division of Right Lower Leg Tendon, Open Approach (ICD-10-PCS; 2018-09-13)
PROC: 0JBQ0ZZ Excision of Right Foot Subcutaneous Tissue and Fascia, Open Approach (ICD-10-PCS; principal; 2018-09-13 10:45)
PROC: 05H333Z Insertion of Infusion Device into Right Innominate Vein, Percutaneous Approach (ICD-10-PCS; 2018-09-18)
DX: M86.8X7 Other osteomyelitis, ankle and foot (principal); L02.611 Cutaneous abscess of right foot; E27.1 Primary adrenocortical insufficiency; E87.1 Hypo-osmolality and hyponatremia; E87.2 Acidosis; N17.9 Acute kidney failure, unspecified; M84.474A Pathological fracture, right foot, initial encounter for fracture; G62.9 Polyneuropathy, unspecified; E87.5 Hyperkalemia; I12.9 Hypertensive chronic kidney disease with stage 1 through stage 4 chronic kidney disease, or unspecified chronic kidney disease; N18.9 Chronic kidney disease, unspecified; M20.41 Other hammer toe(s) (acquired), right foot; M21.611 Bunion of right foot; M67.01 Short Achilles tendon (acquired), right ankle; M62.461 Contracture of muscle, right lower leg; I95.81 Postprocedural hypotension; Z79.899 Other long term (current) drug therapy; Z87.891 Personal history of nicotine dependence; Z87.442 Personal history of urinary calculi; Z80.9 Family history of malignant neoplasm, unspecified; Z83.3 Family history of diabetes mellitus; Z82.49 Family history of ischemic heart disease and other diseases of the circulatory system
CPT/HCPCS: 36415; 36569; 76937; 77001; 80048; 80053; 80202; 82436; 82565; 83735; 83935; 83986; 84100; 84133; 84300; 84520; 85014; 85018; 85025; 85049; 85610; 87070; 87073; 87205; 87640; 87641; 88305; 88311; 93005; A9270-GY; C1750; G8978-GP-CL; G8979-GP-CI; G8987-GO-CL; G8988-GO-CJ; J0610; J0690; J1642; J1650; J1720; J2250; J2543; J2704; J3010; J3370; J3490; J8540